=== PATIENT | female | born 1940 | race Caucasian/White ===

== ENCOUNTER → 2016-12-31 | Outpatient (CLI) | payer OTHER, MEDICARE ==
[~2016-12-31] MED LIST: ACEB200C PO; ANAS1TAB19 PO; ANAS1TAB6 PO; CALC500C70 PO; CLTP PO; CRDCD180 PO; FEXO5TAB2 PO; GLCSUNK PO; GLUC1CAP33 PO; HYDC25 PO; HYDR25TA5 PO; IBUP-103 PO; IBUP-1050 PO; MULT-506 PO; VITA400C3 PO
== END | disposition home or self-care (01) ==
LOC: C.RDSM 08:45
PROVIDERS: ATTEND Family Medicine
DX: M54.5 Low back pain (principal); M53.3 Sacrococcygeal disorders, not elsewhere classified; M25.561 Pain in right knee

== ENCOUNTER → 2017-03-31 | Day surgery (SDC) | payer OTHER, MEDICARE ==
[2017-03-17 10:39] VITALS: Ht 167.6 cm; Wt 70.7 kg
[~2017-03-31] VITALS: Ht 167.6 cm; Wt 70.7 kg
[~2017-03-31] MED LIST changes: +500ML BSS 0.3ML EPI 1:1000PF IRRIG ONE; +ACETAMINOPHEN 325 MG TAB PO PRN; +AMVISC PLUS 0.8ML SYRINGE INT OCU ONE; -ANAS1TAB19 PO; +ATROPINE SULFATE 0.1 MG/ML 5ML SYR IV PRN; +BETAXOLOL HCL 0.25% OP SUSP PER DROP CHARGE OPL SCH; +BRIMONIDINE TART 0.2% OP SOLN PER DROP CHARGE ONE; +BSS FLUSH ONE; -CLTP PO; +ENDOCOAT 0.85ML SYRINGE INT OCU ONE; +EpINEphrine INJ 1MG/ML AMP 1 MG/ML AMP ONE; -GLCSUNK PO; -HYDC25 PO; -IBUP-1050 PO; +LACTATED RINGER'S 1000ML 500 ML IV SCH; +LIDOCAINE 4% OP SOLN DROP CHARGE ONE; +LIDOCAINE 4% OP SOLN DROP CHARGE OPL SCH; +LIDOCAINE HCL 1% MPF 2 ML VIAL ONE; +MIDAZOLAM HCL 1 MG/ML 2ML VIAL ONE; +MIX: 4ML BSS 1ML EPI 1:1000 PF INSTIL ONE; +MOXIFLOXACIN OPH SOLN PER DROP CHARGE ONE; +OCUCOAT 1 ML SOLN IO ONE; +POVIDONE-IODINE OP SOLN 30 ML BTL ONE; +PROPARACAINE 0.5% OP SOLN PER DROP CHARGE OPL SCH; +TOBRAMYCIN/DEXAMETHASONE OPH OINT PER APPLN CHARGE ONE; -VITA400C3 PO
[2017-03-31] MEDS: PHENYLEPHRINE HCL 2.5% OP SOLN PER DROP CHARGE OPL SCH ×2 (08:13→08:19)
[2017-03-31] MEDS: TROPICAMIDE 1% OP SOLN PER DROP CHARGE OPL SCH ×2 (08:14→08:20)
[2017-03-31] MEDS: CYCLOPENTOLATE HCL 1% OP SOLN PER DROP CHARGE OPL SCH ×2 (08:16→08:21)
--- NOTE | 2017-03-31 08:16 | History & Physical Bridge - [place] ---
H&P Re-Evaluation Bridge Note: I have examined the patient, reviewed the History & Physical and in the interval since the performance of the History & Physical I have noted the following changes of clinical significance: No changes noted
[2017-03-31] MEDS: MOXIFLOXACIN OPH SOLN PER DROP CHARGE OPL SCH ×2 (08:17→08:23)
--- NOTE | 2017-03-31 09:22 | Discharge Instructions-SurgCtr ---
Discharge Instructions Date of Service Mar 31, 2017. Visit Reason for Visit: Cataract Left Eye Discharge Discharge Diagnosis / Problem: lens implant left eye Discharge Goals Goal(s): Improve function Activity Recommendations Activity Limitations: resume your previous activity Lifting Limitations: no more than 10 pounds Exercise/Sports Limitations: gradually increase as tolerated May Resume Sexual Activity: when tolerated Shower/Bathe: tomorrow Driving or Machine Use: resume 1 day after discharge Anesthesia . Post Anesthesia Instructions: If you have had General Anesthesia or IV Sedation: * Do not drive today. * Resume driving when surgeon permits. * Do not make important decisions or sign legal documents today. * Call surgeon for: 1. Temperature elevations greater than 101 degrees F. 2. Uncontrollable pain. 3. Excessive bleeding. 4. Persistent nausea and vomiting. 5. Medication intolerance (nausea, vomiting or rash). * For nausea and vomiting use only clear liquids such as: tea, soda, bouillon until nausea subsides, then gradually increase diet as tolerated. * If you have any concerns or questions, call your surgeon's office. If physician is unavailable and it is an emergency, call 911 or go to the nearest emergency room. . Instructions / Follow-Up Instructions / Follow-Up ACTIVITY RECOMMENDATIONS: * Light activities. * Mild irritation and blurred vision are common for the first few days. * You may walk outside, read, watch television. * Redness around the white part of the eye is common. MEDICATIONS: Resume previous medications unless instructed otherwise by your surgeon. Start all eye drops at 1 pm today: * Eye drops (today and tomorrow): Prednisone - one drop in operative eye every 3 hours while awake Ofloxacin - one drop in operative eye every 3 hours while awake SPECIAL CARE INSTRUCTIONS: * Tape plastic shield over eye to sleep at night. Call your doctor at with any concerns or problems. FOLLOW UP VISIT: Follow-up with Dr Bowden at [place] office as scheduled. Diet Recommendations Home Diet: no limitations Procedures Procedures Performed: Left Eye Cataract Phacoemulsification With Intraocular Lens Implant Pending Studies Studies pending at discharge: no Medical Emergencies . Who to Call and When: Medical Emergencies: If at any time you feel your situation is an emergency, please call 911 immediately. . Non-Emergent Contact Non-Emergency issues call your: Equip Tech Call Non-Emergent contact if: your pain is not controlled [phone] . . "Provider Documentation" section prepared by Dylan Bowden. .
--- NOTE | 2017-03-31 09:25 | [facility] Operative Report ---
Operative Report Date of Service Mar 31, 2017. Operative Report 1. PREOPERATIVE DIAGNOSIS: Senile Posterior Subcapsular Cataract, left eye. 2. POSTOPERATIVE DIAGNOSIS: Senile Posterior Subcapsular Cataract, left eye. 3. PROCEDURE: Phacoemulsification of left cataract with posterior chamber lens implant, type Bausch [employer] Lomb, model MI60L, power +21.0 diopters. ANESTHESIA: Local standby. SURGEON: Dr. Bowden. COMPLICATIONS: None. OPERATING TIME: 10 minutes. 4. OPERATION AND FINDINGS: DESCRIPTION OF PROCEDURE: The left pupil was dilated. The anesthetic was administered using a topical technique. The left eye was prepped and draped. A speculum was placed. A clear corneal incision was formed. The chamber was filled with Amvisc Plus and Endocoat. Epinephrine solution was used. A paracentesis was placed. A capsulorrhexis was performed. The nucleus was hydrodissected. The lens was removed with phacoemulsification. Time was 4.00 seconds. The aspiration unit was used to remove the cortex. The capsule was filled with Amvisc Plus. The lens implant was folded and placed into the capsule. The incision was hydrated. The Amvisc was aspirated. The wound was secure. The chamber was deep. The pupil was round. Brimonidine, TobraDex ointment and Vigamox solution were placed. The speculum was removed. The patient was returned to the Recovery Room in stable condition. I attest to the content of the Intraoperative Record and any orders documented therein. Any exceptions are noted below. The scribe's documentation has been prepared in my presence, under my direction and personally reviewed by me in its entirety. I confirm that the note above accurately reflects all work, treatment, procedures, and medical decision making performed by me. I personally scribed for Dylan Bowden M.D. (ALISA) on 03/31/17 at 09:25. Electronically submitted by Kellie MICHELLE).
[2017-03-31 09:26] VITALS: TEMP 36.4
--- NOTE | 2017-03-31 09:31 | Anesthesia Progress Nt - [facility] ---
Anesthesia Post Op Note Date & Time Mar 31, 2017 at 09:31 Vital Signs Pain Intensity: 0 Vital Signs Past 12 Hours Date Time Temp Pulse Resp B/P (MAP) Pulse Ox O2 Delivery O2 Flow Rate FiO2 03/31/17 09:26 36.4 60 14 125/69 (87) 94 Room Air 03/31/17 08:03 36.8 61 18 135/77 (96) 96 Room Air Notes Mental Status: alert / awake / arousable, participated in evaluation Pt Amnestic to Procedure: Yes Nausea / Vomiting: adequately controlled Pain: adequately controlled Airway Patency, RR, SpO2: stable & adequate BP & HR: stable & adequate Hydration State: stable & adequate Anesthetic Complications: no major complications apparent
[2017-03-31 09:55] VITALS: BP 122/76; PULSE 64; O2SAT 98
== END | disposition home or self-care (01) ==
LOC: X.SURG 07:42
PROVIDERS: ATTEND Specialist
DX: H25.042 Posterior subcapsular polar age-related cataract, left eye (principal); I10 Essential (primary) hypertension; Z88.0 Allergy status to penicillin; Z88.2 Allergy status to sulfonamides; Z68.25 Body mass index [BMI] 25.0-25.9, adult; Z85.3 Personal history of malignant neoplasm of breast

== ENCOUNTER → 2017-04-14 | Day surgery (SDC) | payer OTHER, MEDICARE ==
[2017-04-08 10:35] VITALS: Ht 167.6 cm; Wt 70.7 kg
[~2017-04-14] VITALS: Ht 167.6 cm; Wt 70.7 kg
[~2017-04-14] MED LIST changes: -500ML BSS 0.3ML EPI 1:1000PF IRRIG ONE; -AMVISC PLUS 0.8ML SYRINGE INT OCU ONE; -BETAXOLOL HCL 0.25% OP SUSP PER DROP CHARGE OPL SCH; +BETAXOLOL HCL 0.25% OP SUSP PER DROP CHARGE OPR SCH; -BSS FLUSH ONE; -ENDOCOAT 0.85ML SYRINGE INT OCU ONE; +EpHEDrine SULFATE INJ 50 MG/ML AMP IV PRN; -LIDOCAINE 4% OP SOLN DROP CHARGE OPL SCH; +LIDOCAINE 4% OP SOLN DROP CHARGE OPR SCH; -MIX: 4ML BSS 1ML EPI 1:1000 PF INSTIL ONE; -OCUCOAT 1 ML SOLN IO ONE; -PROPARACAINE 0.5% OP SOLN PER DROP CHARGE OPL SCH; +PROPARACAINE 0.5% OP SOLN PER DROP CHARGE OPR SCH
[2017-04-14] MEDS: PHENYLEPHRINE HCL 2.5% OP SOLN PER DROP CHARGE OPR SCH ×2 (07:29→07:33)
[2017-04-14] MEDS: TROPICAMIDE 1% OP SOLN PER DROP CHARGE OPR SCH ×2 (07:30→07:34)
[2017-04-14] MEDS: CYCLOPENTOLATE HCL 1% OP SOLN PER DROP CHARGE OPR SCH ×2 (07:31→07:36)
[2017-04-14] MEDS: MOXIFLOXACIN OPH SOLN PER DROP CHARGE OPR SCH ×2 (07:32→07:38)
--- NOTE | 2017-04-14 08:13 | Discharge Instructions-SurgCtr ---
Discharge Instructions Date of Service Apr 14, 2017. Visit Reason for Visit: Cataract Right Eye Discharge Discharge Diagnosis / Problem: lens implant right eye Discharge Goals Goal(s): Improve function Activity Recommendations Activity Limitations: resume your previous activity Lifting Limitations: no more than 10 pounds Exercise/Sports Limitations: gradually increase as tolerated May Resume Sexual Activity: when tolerated Shower/Bathe: tomorrow Driving or Machine Use: resume 1 day after discharge Anesthesia . Post Anesthesia Instructions: If you have had General Anesthesia or IV Sedation: * Do not drive today. * Resume driving when surgeon permits. * Do not make important decisions or sign legal documents today. * Call surgeon for: 1. Temperature elevations greater than 101 degrees F. 2. Uncontrollable pain. 3. Excessive bleeding. 4. Persistent nausea and vomiting. 5. Medication intolerance (nausea, vomiting or rash). * For nausea and vomiting use only clear liquids such as: tea, soda, bouillon until nausea subsides, then gradually increase diet as tolerated. * If you have any concerns or questions, call your surgeon's office. If physician is unavailable and it is an emergency, call 911 or go to the nearest emergency room. . Instructions / Follow-Up Instructions / Follow-Up ACTIVITY RECOMMENDATIONS: * Light activities. * Mild irritation and blurred vision are common for the first few days. * You may walk outside, read, watch television. * Redness around the white part of the eye is common. MEDICATIONS: Resume previous medications unless instructed otherwise by your surgeon. Start all eye drops at 1 pm today: * Eye drops (today and tomorrow): Prednisone - one drop in operative eye every 3 hours while awake Ofloxacin - one drop in operative eye every 3 hours while awake SPECIAL CARE INSTRUCTIONS: * Tape plastic shield over eye to sleep at night. Call your doctor at with any concerns or problems. FOLLOW UP VISIT: Follow-up with Dr Bowden at [place] office as scheduled. Diet Recommendations Home Diet: no limitations Procedures Procedures Performed: cataract extraction with lens implant Pending Studies Studies pending at discharge: no Medical Emergencies . Who to Call and When: Medical Emergencies: If at any time you feel your situation is an emergency, please call 911 immediately. . Non-Emergent Contact Non-Emergency issues call your: College Admissions Counselor Call Non-Emergent contact if: your pain is not controlled [phone] . . "Provider Documentation" section prepared by Dylan Bowden. .
--- NOTE | 2017-04-14 08:14 | [facility] Operative Report ---
Operative Report Date of Service Apr 14, 2017. Operative Report 1. PREOPERATIVE DIAGNOSIS: Senile nuclear cataract, right eye. 2. POSTOPERATIVE DIAGNOSIS: Senile nuclear cataract, right eye. 3. PROCEDURE: Phacoemulsification of right cataract with posterior chamber lens implant, type Bausch [employer] Lomb, model MI60L, power +19.5 diopters. ANESTHESIA: Local standby. SURGEON: Dr. Bowden. COMPLICATIONS: None. OPERATING TIME: 10 minutes. 4. OPERATION AND FINDINGS: DESCRIPTION OF PROCEDURE: The right pupil was dilated. The anesthetic was administered using a topical technique. The right eye was prepped and draped. A speculum was placed. A clear corneal incision was formed. The chamber was filled with Amvisc Plus and Endocoat. Epinephrine solution was used. A paracentesis was placed. A capsulorrhexis was performed. The nucleus was hydrodissected. The lens was removed with phacoemulsification. Time was 4.07 seconds. The aspiration unit was used to remove the cortex. The capsule was filled with Amvisc Plus. The lens implant was folded and placed into the capsule. The incision was hydrated. The Amvisc was aspirated. The wound was secure. The chamber was deep. The pupil was round. Brimonidine, TobraDex ointment and Vigamox solution were placed. The speculum was removed. The patient was returned to the Recovery Room in stable condition. I attest to the content of the Intraoperative Record and any orders documented therein. Any exceptions are noted below. The scribe's documentation has been prepared in my presence, under my direction and personally reviewed by me in its entirety. I confirm that the note above accurately reflects all work, treatment, procedures, and medical decision making performed by me. I personally scribed for Dylan Bowden M.D. (ALISA) on 04/14/17 at 08:14. Electronically submitted by Kellie Fletcher (ANALILIA).
[2017-04-14 08:16] VITALS: TEMP 36.3
--- NOTE | 2017-04-14 08:25 | Anesthesia Progress Nt - [facility] ---
Anesthesia Post Op Note Date & Time Apr 14, 2017 at 08:25 Vital Signs Pain Intensity: 0 Vital Signs Past 12 Hours Date Time Temp Pulse Resp B/P (MAP) Pulse Ox O2 Delivery O2 Flow Rate FiO2 04/14/17 08:16 36.3 55 16 121/70 (87) 97 Room Air 04/14/17 07:21 36.6 58 18 125/78 (94) 95 Room Air Notes Mental Status: alert / awake / arousable, participated in evaluation Pt Amnestic to Procedure: Yes Nausea / Vomiting: adequately controlled Pain: adequately controlled Airway Patency, RR, SpO2: stable & adequate BP & HR: stable & adequate Hydration State: stable & adequate Anesthetic Complications: no major complications apparent
[2017-04-14 08:40] VITALS: BP 116/64; PULSE 54; O2SAT 98
== END | disposition home or self-care (01) ==
LOC: X.SURG 06:49
PROVIDERS: ATTEND Specialist
DX: H25.11 Age-related nuclear cataract, right eye (principal); I10 Essential (primary) hypertension; M19.90 Unspecified osteoarthritis, unspecified site; Z85.3 Personal history of malignant neoplasm of breast; Z88.2 Allergy status to sulfonamides; Z88.1 Allergy status to other antibiotic agents; Z88.0 Allergy status to penicillin; Z90.89 Acquired absence of other organs

== ENCOUNTER → 2017-08-30 | Outpatient (CLI) | payer OTHER, MEDICARE ==
[~2017-08-30] MED LIST changes: -ACETAMINOPHEN 325 MG TAB PO PRN; -ATROPINE SULFATE 0.1 MG/ML 5ML SYR IV PRN; -BETAXOLOL HCL 0.25% OP SUSP PER DROP CHARGE OPR SCH; -BRIMONIDINE TART 0.2% OP SOLN PER DROP CHARGE ONE; -EpHEDrine SULFATE INJ 50 MG/ML AMP IV PRN; -EpINEphrine INJ 1MG/ML AMP 1 MG/ML AMP ONE; -LACTATED RINGER'S 1000ML 500 ML IV SCH; -LIDOCAINE 4% OP SOLN DROP CHARGE ONE; -LIDOCAINE 4% OP SOLN DROP CHARGE OPR SCH; -LIDOCAINE HCL 1% MPF 2 ML VIAL ONE; -MIDAZOLAM HCL 1 MG/ML 2ML VIAL ONE; -MOXIFLOXACIN OPH SOLN PER DROP CHARGE ONE; -POVIDONE-IODINE OP SOLN 30 ML BTL ONE; -PROPARACAINE 0.5% OP SOLN PER DROP CHARGE OPR SCH; -TOBRAMYCIN/DEXAMETHASONE OPH OINT PER APPLN CHARGE ONE
== END | disposition home or self-care (01) ==
LOC: C.RDSM 08:45
PROVIDERS: ATTEND Physical Medicine & Rehabilitation Sports Medicine
DX: M17.0 Bilateral primary osteoarthritis of knee (principal)

== ENCOUNTER 2017-12-22 15:46 | Emergency (ER) | payer MEDICARE, OTHER ==
[~2017-12-22] VITALS: Ht 170.2 cm; Wt 85.0 kg
[2017-12-22 15:51] VITALS: TEMP 36.7; Ht 170.2 cm; Wt 85.0 kg
[2017-12-22] MEDS ORDERED: ONDANSETRON INJ 2 MG/ML 2 ML VIAL IV STA (16:09)
[2017-12-22] MEDS ORDERED: DILT0.05 PO (16:34)
[2017-12-22 16:38] LABS: BASO % 0.1 %; BASO ABS # 0.03 K/uL (0-0.2); EOS % 1.1 %; EOS ABS # 0.24 K/uL (0-0.5); HEMATOCRIT 39.5 % (37-47); HEMOGLOBIN 14.1 g/dL (12.0-16.0); IG# 0.29 K/uL (0.00-0.02); LYMPH % 10.4 %; LYMPH ABS # 2.17 K/uL (1.2-3.4); MEAN CELL VOLUME 91.4 fL (80-100); MEAN CORPUSCULAR HEMOGLOBIN 32.6 pg (25-34); MEAN CORPUSCULAR HGB CONC 35.7 g/dl (32-36); MONO % 4.6 %; MONO ABS # 0.97 K/uL (0.11-0.59); NEUT % 82.4 %; NEUT ABS # 17.22 K/uL (1.4-6.5); PLATELET COUNT 336 K/uL (130-400); RED CELL DISTRIBUTION WIDTH CV 12.8 % (11.5-14.5); RED CELL DISTRIBUTION WIDTH SD 43.2 fL (36.4-46.3); WHITE BLOOD COUNT 20.92 K/uL (4.8-10.8)
[2017-12-22 16:45] LABS: ISTAT IONIZED CALCIUM 1.26 mmol/l (1.12-1.32); ISTAT POTASSIUM 4.1 mEq/L (3.3-5.0)
[2017-12-22 16:47] LABS: INR 0.9 (0.9-1.1); PTT PATIENT 22.9 SECONDS (21.0-31.0)
[2017-12-22] MEDS: FENTANYL CITRATE INJ 50 MCG/1 ML 2 ML VIAL IV PRN ×2 (16:52→19:56)
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
[2017-12-22 16:56] LABS: ALBUMIN 3.6 gm/dl (3.4-5.0); ALT/SGPT 86 U/L (12-78); AST/SGOT 92 U/L (15-37); BLOOD UREA NITROGEN 32 mg/dl (7-18); CALCIUM 9.6 mg/dl (8.5-10.1); CARBON DIOXIDE 25 mmol/L (21-32); CREATININE 1.08 mg/dl (0.60-1.20); GLUCOSE 120 mg/dl (70-99); LIPASE 401 U/L (73-393); SODIUM 137 mmol/L (136-145)
[2017-12-22 17:01] LABS: ALKALINE PHOSPHATASE 101 U/L (45-117)
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
[2017-12-22] MEDS ORDERED: OPTIRAY 320 IV PRN (17:15)
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
[2017-12-22 19:40] VITALS: BP 131/77; PULSE 82; O2SAT 94
== END 2017-12-22 20:04 | disposition short-term general hospital (02) ==
LOC: EDBD 15:46 → C.EDB 15:50
DX: S32.810A Multiple fractures of pelvis with stable disruption of pelvic ring, initial encounter for closed fracture (principal); S32.10XA Unspecified fracture of sacrum, initial encounter for closed fracture; R31.9 Hematuria, unspecified; S36.039A Unspecified laceration of spleen, initial encounter; S20.219A Contusion of unspecified front wall of thorax, initial encounter; V43.52XA Car driver injured in collision with other type car in traffic accident, initial encounter; Y93.89 Activity, other specified; Y92.414 Local residential or business street as the place of occurrence of the external cause; I10 Essential (primary) hypertension; Z88.0 Allergy status to penicillin; Z88.2 Allergy status to sulfonamides; Z88.8 Allergy status to other drugs, medicaments and biological substances; Z88.1 Allergy status to other antibiotic agents; Z91.048 Other nonmedicinal substance allergy status

== ENCOUNTER 2022-12-25 06:24 | Observation (INO) ==
--- NOTE | 2022-10-02 09:22 | PAT Medication Instructions ---
Medication Instructions Date of Service October 02, 2022 Home Medications Ca 600 mg-D3 20 mcg-mag oxide 50 ca-Up-mweczi-manganese-boron tablet (Calcium 600-D3 Plus (mag-zinc)) 1 tab PO QAM acebutolol 200 mg capsule 200 mg PO QAM hydrochlorothiazide 25 mg tablet 25 mg PO QAM ibuprofen 200 mg tablet (Advil) 400 mg PO QPM PRN Pain multivitamin 1 tab PO QAM potassium chloride 10 mEq tablet,extended release (Klor-Con) 10 meq PO BID simethicone 125 mg capsule (Gas-X Extra Strength) 125 mg PO HS PRN Abdominal Discomfort sodium chloride 0.65 % nasal spray aerosol (Saline Nasal) 1 spray intranasal BID PRN Nasal Congestion glucosamine-chondroitin 250 mg-200 mg tablet (Osteo Bi-Flex) 1 tab PO QAM sennosides 8.6 mg-docusate sodium 50 mg tablet (P-COL RITE) 2 tab PO PM PRN constipation diltiazem HCl 180 mg capsule,extended release 24 hr (Cartia XT) 180 mg PO BID ASK your surgeon for instructions ibuprofen 200 mg tablet (Advil) 400 mg PO QPM PRN Pain STOP taking 2 weeks before surgery glucosamine-chondroitin 250 mg-200 mg tablet (Osteo Bi-Flex) 1 tab PO QAM DO NOT take the morning of surgery Ca 600 mg-D3 20 mcg-mag oxide 50 qt-Uw-btejqy-manganese-boron tablet (Calcium 600-D3 Plus (mag-zinc)) 1 tab PO QAM hydrochlorothiazide 25 mg tablet 25 mg PO QAM multivitamin 1 tab PO QAM potassium chloride 10 mEq tablet,extended release (Klor-Con) 10 meq PO BID Take morning of surgery With a small sip of water, OTHERWISE NOTHING TO EAT OR DRINK AFTER MIDNIGHT: sodium chloride 0.65 % nasal spray aerosol (Saline Nasal) 1 spray intranasal BID PRN Nasal Congestion (if needed) diltiazem HCl 180 mg capsule,extended release 24 hr (Cartia XT) 180 mg PO BID acebutolol 200 mg capsule 200 mg PO QAM Take evening before surgery potassium chloride 10 mEq tablet,extended release (Klor-Con) 10 meq PO BID simethicone 125 mg capsule (Gas-X Extra Strength) 125 mg PO HS PRN Abdominal Discomfort (if needed) sodium chloride 0.65 % nasal spray aerosol (Saline Nasal) 1 spray intranasal BID PRN Nasal Congestion (if needed) sennosides 8.6 mg-docusate sodium 50 mg tablet (P-COL RITE) 2 tab PO PM PRN constipation (if needed) diltiazem HCl 180 mg capsule,extended release 24 hr (Cartia XT) 180 mg PO BID Other Notes If you have any questions please call us at [phone] or [phone] or [phone] or [phone]
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
[~2022-12-25 06:24] MED LIST changes: -ACEB200C PO; +ACETAMINOPHEN 500 MG TAB PO SCH; -ANAS1TAB6 PO; +BUPIVACAINE 0.5 % 5 MG/1 ML PF 10ML VIAL ONE; -CALC500C70 PO; -CRDCD180 PO; +FAMOTIDINE 20 MG TAB PO SCH; -FEXO5TAB2 PO; +GABAPENTIN 300 MG CAP PO SCH; -GLUC1CAP33 PO; -HYDR25TA5 PO; -IBUP-103 PO; +LR 15ML/HR IV SCH; +LR 60ML/HR IV SCH; -MULT-506 PO; +ORTHO JOINT MIX INFIL SCH; +TRANEXAMIC ACID 1,000 MG **IV Intra-op IV SCH; +TRANEXAMIC ACID 1,000 MG **IV Pre-op IV SCH; +ceFAZolin 2000MG 2,000 MG/15 ML SYR IV SCH; +dexAMETHasone 4 MG TAB PO SCH
[2022-12-25] MEDS ORDERED: BUPIVACAINE 0.5 % 5 MG/1 ML PF 10ML VIAL ONE (06:26)
--- NOTE | 2022-12-25 06:35 | History & Physical Bridge Note ---
Date of Service December 25, 2022 History & Physical Bridge Note I have examined the patient, reviewed the History & Physical and in the interval since the performance of the History & Physical I have noted the following changes of clinical significance: no changes noted
[2022-12-25] MEDS ORDERED: fentaNYL citrate 100 MCG/2 ML VIAL ONE (07:13)
[2022-12-25] MEDS ORDERED: MIDAZOLAM HCL 1 MG/ML 2ML VIAL ONE (07:13)
[2022-12-25] MEDS ORDERED: PROPOFOL IV EMULSION 10 MG/ML 20 ML VIAL IV ONE (07:17)
[2022-12-25] MEDS ORDERED: ONDANSETRON INJ 2 MG/ML 2 ML VIAL ONE (07:18)
[2022-12-25] MEDS ORDERED: LIDOCAINE 2% MPF LOCAL 5 ML VIAL INFIL ONE (07:18)
[2022-12-25] MEDS ORDERED: ePHEDrine sulfate 50 MG/ML AMP IV PRN (07:30)
[2022-12-25] MEDS ORDERED: HYDROmorphone INJ 2 MG/ML SYR/VIAL IV PRN (07:30)
[2022-12-25] MEDS ORDERED: Nursing to Pharmacy Communication SCH (07:30)
[2022-12-25] MEDS ORDERED: ATROPINE SULFATE 0.1 MG/ML 10ML SYR IV PRN (07:30)
[2022-12-25] MEDS ORDERED: fentaNYL citrate 100 MCG/2 ML VIAL IV PRN (07:30)
[2022-12-25] MEDS ORDERED: ONDANSETRON INJ 2 MG/ML 2 ML VIAL IV PRN ×2 (07:30→11:36)
[2022-12-25] MEDS ORDERED: ORTHO JOINT ANESTHETIC ONE (07:44)
[2022-12-25] MEDS ORDERED: ePHEDrine sulfate 50 MG/ML AMP ONE (08:49)
[2022-12-25] MEDS ORDERED: SUGAMMADEX SODIUM 200 MG/2 ML VIAL IV ONE (09:01)
--- NOTE | 2022-12-25 09:29 | Operative Report ---
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 A tenodesis was opted. This was a separate and distinct portion of the procedure. Also, hardware from a previous operation in 2004 need to be removed. The incision was extended and the hardware was exposed and removed. This was also a distinct and separate portion of the procedure. For these reasons, a CPT code modifier 59 will be added to this case. Implants used: I used a [employer] Comprehensive reverse total shoulder arthroplasty system with a size 11 press fit micro humeral stem, a +6 offset standard humeral tray and a standard humeral bearing, a 25 mm small augment baseplate with a 6.5 mm central screw and superior and inferior locking screws, and a size 40 mm eccentric glenosphere. Ban arrived at [facility] for the above procedure. She was seen in the preoperative holding area and the operative extremity was identified and signed. She was given a preoperative antibiotic, TXA, and an interscalene nerve block. She was taken back to the operating room, laid on table in supine position, and put under general anesthesia. She was then put into the beachchair position. The shoulder was then prepped and draped in sterile fashion. A timeout was done and the patient and the operative extremity was properly identified. A deltopectoral approach was used. Dissection was taken down through the fascia and the deltoid was retracted laterally and the conjoined tendon was retracted medially. The anterior shoulder was exposed. The biceps groove was opened up and the biceps tendon was examined extensively. The biceps tendon demonstrated enlargement and inflammatory changes consistent with longstanding inflammation in the context of osteoarthritis and cuff arthropathy. The long head of the biceps tendon was then tenodesed to the upper border of the pectoralis major. This was a separate and distinct portion of the procedure. The incision was extended slightly distally. Dissection was taken down to the inferior border the pectoralis major. There was a plate and screw from a previous procedure. Time was spent exposing the screw and a single screw was removed from the plate. This was also a distinct and separate part of the procedure. The subscapularis was then directly released off the lesser tuberosity with a peel technique. The inferior capsule was released and the humeral head was dislocated. A canal finding reamer was sent down the center of the humeral canal. Seque ntial reaming up to a size 11 reamer was done. Off that reamer, a proximal humeral resection guide was placed. The proximal humerus was resected at 135 of inclination and 25 of retroversion. Osteophytes were then removed and the glenoid was exposed. Time was spent doing a complete capsular and labral release. The glenoid guide was then placed in the inferior aspect of the glenoid. A 3.2 mm Steinmann pin was then placed into the glenoid vault at 10 of inclination. The glenoid baseplate was then reamed. The final size 25 mm small augment baseplate was then impacted in the place. A 6.5 mm central screw was then placed followed by superior and inferior locking screws. A 40 mm eccentric glenosphere was then impacted into place. Surrounding soft tissues were then injected with 100 cc an orthopedic pain control cocktail. The proximal humerus was then exposed. Sequential broaching of the humerus up to a size 11 broach was done. Off that broach a +6 offset humeral tray was trialed. The shoulder was then reduced, brought through a full range of motion, and felt to be stable. The shoulder was then dislocated and the broach was removed. The final size 11 micro press-fit humeral stem was then impacted into place. A standard humeral bearing was then snapped onto a +6 offset humeral tray. The humeral tray was then impacted onto the humeral stem. The shoulder was once again reduced, brought through a full range of motion, and felt to be stable. The subscapularis was then tenodesed back to the lesser tuberosity with transosseous FiberWire sutures and side to side sutures with the arm in 45 of external rotation. A dilute betadyne lavage was then done for 3 minutes. The joint was then irrigated with normal saline solution. Hemostasis was obtained. The interval was closed with 2-0 Vicryl suture. The skin was then closed with 2-0 Vicryl and dirk. A Silverlon dressing was placed and the arm was rested in a regular arm sling. She was then extubated and transferred to a hospital bed. She taken to the postanesthesia care unit in stable condition. She tolerated the procedure well. Bg Devries PA-C, was present for the entire procedure. He was critical for patient positioning, prepping, draping, retraction exposure, wound closure and application of sterile dressing. I attest to the content of the Intraoperative Record and any orders documented therein. Any exceptions are noted below.
[2022-12-25] MEDS ORDERED: PROMETHAZINE HCL 6.25 MG in SODIUM CHLORIDE 0.9% 50 ML IV PRN (10:46)
[2022-12-25] MEDS ORDERED: PROMETHAZINE HCL INJ 25 MG/ML 1 ML VIAL ONE (10:48)
[2022-12-25] MEDS ORDERED: SODIUM CHLORIDE 0.9% 50 ML BAG ONE (10:50)
--- NOTE | 2022-12-25 10:53 | XRay Report ---
XR shoulder RT min 2V routine HISTORY: 82 years-old Female Post shoulder surgery right shoulder arthroplasty COMPARISON: Chest radiographs September 18, 2023 TECHNIQUE: 3 views of the right shoulder FINDINGS: Reverse right shoulder total joint arthroplasty with expected postoperative soft tissue swelling and deep tissue air. Overlying skin dirk. Plate and screw fusion hardware of the mid humeral diaphysis with intact hardware. Moderate degeneration of the AC joint. Right axillary surgical clips. IMPRESSION: Right shoulder arthroplasty with expected postoperative changes. ACT 112: Negative or not required by law. The above report was generated using voice recognition software. It may contain grammatical, syntax o r spelling errors. Electronically signed by: Bashir Huddleston M.D. 12/25/2022 10:51 AM
--- NOTE | 2022-12-25 11:07 | Anesthesiology Progress Note ---
Date of Service December 25, 2022 Anesthesia Post Procedure Vital Signs Vital Signs: Temp Pulse Pulse Resp BP Pulse Ox O2 Del Method 12/25/22 10:50 58 L 18 121/64 94 Room Air 12/25/22 10:40 57 L 20 105/65 94 Room Air 12/25/22 10:30 55 L 17 115/62 93 Room Air 12/25/22 10:20 60 19 125/64 93 Room Air 12/25/22 10:10 59 L 18 116/61 97 Oxymask 12/25/22 10:00 58 L 20 122/64 96 Oxymask 12/25/22 09:53 36.1 C L 56 L 16 119/61 96 Oxymask 12/25/22 06:54 36.5 C 73 18 165/94 H 96 Room Air O2 Flow Rate 12/25/22 10:50 12/25/22 10:40 12/25/22 10:30 12/25/22 10:20 12/25/22 10:10 6 12/25/22 10:00 6 12/25/22 09:53 9 12/25/22 06:54 Pain Intensity Right Shoulder: Pain Intensity: 7 Transfer of Care Handoff Completed per policy Notes Mental Status: alert / awake / arousable and participated in evaluation Patient Amnestic to Procedure: Yes Nausea / Vomiting: adequately controlled Pain: adequately controlled Airway Patency, RR, SpO2: stable & adequate BP & HR: stable & adequate Hydration State: stable & adequate Anesthetic Complications: no major complications apparent and Pt Satisfied with anesthetic care
[2022-12-25] MEDS ORDERED: METOCLOPRAMIDE HCL INJ 5 MG/ML 2 ML VIAL IV PRN (11:36)
[2022-12-25] MEDS ORDERED: bisacodyL 10 MG SUPP PR PRN (11:36)
[2022-12-25] MEDS ORDERED: oxyCODONE HCL IR 5 MG TAB (IMMEDIATE RELEASE) PO PRN (11:36)
[2022-12-25] MEDS ORDERED: HYDROmorphone INJ 0.5 MG/0.5 ML SYR IV PRN (11:36)
[2022-12-25] MEDS ORDERED: NALOXONE HCL 0.4 MG/1 ML VIAL/CARP IV PRN (11:36)
[2022-12-25] MEDS ORDERED: MAGNESIUM HYDROXIDE SUSP 30 ML UDC PO PRN (11:36)
[2022-12-25] MEDS ORDERED: SODIUM CHLORIDE 0.65% NA SOLN 45 ML (OCEAN) PRN (11:36)
[2022-12-25] MEDS: SODIUM CHLORIDE 0.9% 1000ML 1,000 ML IV SCH ×2 (12:17→21:31)
[2022-12-25] MEDS: KETOROLAC TROMETHAMINE 15 MG/ML VIAL IV SCH ×3 (12:41→23:33)
[2022-12-25] MEDS: ACETAMINOPHEN 500 MG TAB PO SCH ×2 (14:58→21:31)
[2022-12-25] MEDS: SOLIFENACIN 10 MG SCH (15:44)
[2022-12-25] MEDS: ceFAZolin 2000MG 2,000 MG/15 ML SYR IV SCH ×2 (17:33→23:33)
[2022-12-25] MEDS ORDERED: SENNA 8.6 MG TAB PO SCH (21:00)
[2022-12-25] MEDS: dilTIAZem HCL 180 MG CAPCR PO SCH (21:32)
[2022-12-25] MEDS: DOCUSATE SODIUM 100 MG CAP PO SCH (21:32)
[2022-12-25] MEDS: POTASSIUM CHLORIDE 10 MEQ TABCR PO SCH (21:32)
[2022-12-26] MEDS: SOLIFENACIN 10 MG SCH ×2 (00:17→08:24)
[2022-12-26] MEDS: ACETAMINOPHEN 500 MG TAB PO SCH (05:23)
[2022-12-26] MEDS: KETOROLAC TROMETHAMINE 15 MG/ML VIAL IV SCH ×2 (05:23→11:01)
[2022-12-26] MEDS ORDERED: dexAMETHasone 4 MG TAB PO SCH (08:00)
[2022-12-26] MEDS: DOCUSATE SODIUM 100 MG CAP PO SCH (08:26)
[2022-12-26] MEDS: POTASSIUM CHLORIDE 10 MEQ TABCR PO SCH (08:26)
[2022-12-26] MEDS: dilTIAZem HCL 180 MG CAPCR PO SCH (08:26)
--- NOTE | 2022-12-26 08:26 | Orthopedic Progress Note ---
Date of Service December 26, 2022 Assessment & Plan (1) Status post reverse total replacement of right shoulder: Overall she is doing fairly well. She is not having much pain in the right shoulder. She will be seen by physical therapy today for ambulation and range of motion exercises. She can be discharged home later today. She will follow- up orthopedics in 2 weeks. Yolanda Cevallos was seen and examined at bedside this morning. Overall she is doing janet rly well. She is not having much pain in the right shoulder. She was able to get some sleep last night. She has no complaints.. Review of Systems All systems reviewed & are unremarkable except as noted in HPI & below. Physical Exam On physical examination of the right shoulder, the dressing is clean and dry. She is wearing her sling as instructed. The nerve block is still intact.. Results & Data Results & Data Laboratory Results . Diagnostic Findings Postoperative x-rays of the right shoulder show the prosthesis to be in anatomic alignment without any evidence of fracture, dislocation, or loosening.. PG Care Time/CCT Total # of Minutes Spent Total Time Spent with Patient: Total time spent is greater than 50% in coordination of care (as documented) at patient's floor/unit and/or counseling patient: Coding Level of Care Code 22695 Post Operative Follow-Up Diagnoses Status post reverse total replacement of right shoulder Z96.611
--- NOTE | 2022-12-26 08:27 | Discharge Summary ---
Date of Service December 26, 2022 Admission HPI (Per Admitting) Ban is a pleasant 82-year-old female who had an ORIF of her right humerus in 2004 in [place]. She did well with that. Unfortunate over the years, she has developed more more right shoulder pain. X-rays and clinical examination have been diagnostic for cuff tear arthropathy of the right shoulder. After failing conservative treatment, she has elected to proceed with a right reverse shoulder arthroplasty.. Admission Exam (Per Admitting) On physical examination of the right shoulder, she has about 60 degrees of forward elevation 60 degrees of abduction. She has 4 out of 5 motor strength t hroughout.. Principal Diagnosis Same as "Discharge Diagnosis" noted below under Discharge Instructions. Discharge Exam On physical examination of the right shoulder, the dressing is clean and dry. She is wearing her sling as instructed. The nerve block is still intact.. Discharge Data Procedures Performed Operation Date: 12/25/22 08:10 Actual Procedures p Right Reverse Total Shoulder Arthroplasty(Right) - Bg Lambert DO Ordered Studies 11/10/22 05:00 US - OR guided needle placemen Routine 12/25/22 05:00 US - OR guided needle placemen Routine Hospital Course (1) Status post reverse total replacement of right shoulder: On December 25, 2022 Ban arrived at [facility] and underwent a right reverse shoulder replaced without complication. She had a general anesthetic and a right interscalene nerve block. Postoperatively she was placed in a sling and transferred to the general orthopedic floors. Her hospital course was uneventful. On postop day #1, her vital signs were stable and her pain was well controlled. She was able to participate well with physical therapy doing ambulation and range of motion exercises. She was then discharged home. She will follow-up with orthopedics in 2 weeks. PG Care Time/CCT Total # of Minutes Spent Total Time Spent with Patient: Total time spent is greater than 50% in coordination of care (as documented) at patient's floor/unit and/or counseling patient: Discharge Plan Discharge Items Patient Disposition: Home - Home Health Services Reason For Visit: Right Shoulder Degenerative Joint Disease Discharge Diagnosis: Right reverse shoulder replacement Activity: As commented below Non-emergency contact: Surgeon Call non-emergency contact if: your wound has increased redness and your wound has increased drainage Follow-up/Referrals: Cecelia Walker DO [Primary Care Provider] - Diet: Regular Addtl Attending Provider Instructions: Activity and Therapy Recommendations: * If you are using [facility] then therapy will be provided at your home until they feel you have accomplished all of your goals. * If you are using [facility] then Physical Therapy will be provided until they feel you are ready to start Outpatient Physical Therapy. * If you are not using home therapy then Outpatient Physical Therapy should start about 3-5 days from your day of surgery. Therapy will last about 8-12 weeks * Wear your sling for 3 weeks, unless otherwise instructed. You may remove your sling to shower and to dress, but otherwise, you should be in your sling at all times, including while sleeping * The shoulder replacement is very stable and you can use your hand while in the sling * You were shown a series of exercises in the hospital. Do these exercises daily including the exercises you were shown in physical therapy. Medications: * Narcotic You will likely be sent home from the hospital with a prescription for the narcotic pain medication that worked best throughout your stay. * Other medications may be prescribed for specific circumstances. If you have any questions, please call the office at . * Resume previous home medications unless otherwise instructed Dressing Care: Leave the Silverlon dressing in place for 7 days. After 7 days you may remove the dressing. If the incision is not draining then you may leave the dirk open to air. If there is a little bit of drainage or if the dirk are getting stuck on your clothing then cover the incision with a dry dressing. The dirk will be removed at your 2 week follow-up appointment. Showering: You may shower with the Silverlon dressing in place. Do not let the shower spray hit the dressing directly. Pat the Silverlon dressing dry. If the dressing becomes wet underneath, then simply remove the dressing. Keep the incision dry until you are 7 days out from the day of surgery. After 7 days you may remove the Silverlon dressing and shower with the dirk exposed. Let soapy water run over the dirk and pat them dry. Do not scrub or soak the incision. Things To Watch For: * Drainage from the incision site that occurs more than one week after your surgery. * Increased redness at the incision site. * Fever above 102 degrees Fahrenheit. * Unusual chest pain or shortness of breath. * Call [facility] at with any of the above problems Follow-Up Visit: Follow-up with Dr. Lambert's PA (Bg Devries) 2-3 weeks after your day of surgery. He will remove your dirk and answer any questions. If you have any additional questions or concerns, Dr Lambert is usually in the office at the same time and will be available An appointment was probably scheduled when you signed-up for surgery in the office. If you have any questions call More detailed instructions as well as Frequently Asked Questions were provided in a folder by our office when you signed-up for surgery. Please review these instructions when you get home. If you have any further questions or concerns, please feel free to call the office at [phone] Pending Studies at Discharge: No Stand-Alone Forms: My [facility] [place], Smoking Cessation Medications and DC Order Prescriptions: New oxycodone-acetaminophen 5-325 mg tablet 1 tab PO Q6H PRN (Reason: pain) Qty: 30 0RF Continued sennosides-docusate sodium [P-COL RITE] 8.6-50 mg tablet 2 tab PO PM PRN (Reason: constipation) potassium chloride [Klor-Con 10] 10 mEq tablet extended release 10 meq PO BID hydrochlorothiazide 25 mg tablet 25 mg PO QAM acebutolol 200 mg capsule 200 mg PO QAM multivitamin Tablet 1 tab PO QAM simethicone [Gas-X Extra Strength] 125 mg Capsule 125 mg PO HS PRN (Reason: Abdominal Discomfort) ibuprofen [Advil] 200 mg Tablet 400 mg PO QPM PRN (Reason: Pain) Saline Nasal 0.65 % Aerosol,[place] 1 spray INTRANASAL BID PRN (Reason: Nasal Congestion) Ca-D3-mag [id number] [Calcium 600-D3 Plus (mag-zinc)] 600 mg calcium- 800 unit-50 mg Tablet 1 tab PO QAM glucosamine-chondroitin [Osteo Bi-Flex] 250-200 mg Tablet 1 tab PO QAM diltiazem HCl [Cartia XT] 180 mg Capsule,Extended Release 24hr 180 mg PO BID meloxicam 15 mg Tablet 15 mg PO DAILY solifenacin 10 mg Tablet 10 mg PO DAILY acetaminophen [Tylenol] 325 mg Capsule 650 mg PO QID PRN (Reason: Pain) Admission Data Admit Date/Time: 12/25/22 09:50 Attending Provider: Bg Lambert Admit Provider: Bg Lambert Primary Care Provider: Cecelia Walker
[2022-12-26] MEDS ORDERED: CALCIUM 600MG + VIT D 400 IU TAB PO SCH (09:00)
[2022-12-26] MEDS ORDERED: MULTIVITAMIN TAB PO SCH (09:00)
[2022-12-26] MEDS ORDERED: ACEBUTOLOL HCL 200 MG CAPSULE PO SCH (09:00)
[2022-12-26] MEDS ORDERED: hydroCHLOROthiazide 25 MG TAB PO SCH (09:00)
== END 2022-12-26 11:53 | disposition home or self-care (01) ==
LOC: ASU 06:24 → 3E 06:24

== ENCOUNTER 2024-04-16 17:02 | Inpatient (IN) ==
--- NOTE | 2024-04-16 17:17 | Emergency Department Note ---
Impression & Plan Fall, Face lacerations, Knee laceration, Cellulitis, Closed rib fracture ED Provider Note NAME: RYANN HOROWITZ AGE: 83 SEX: F : 1940 ARRIVES VIA: Ambulance INFORMANT: Patient ED PROVIDER(S): Erlin Lomeli DO CHIEF COMPLAINT: fall HPI: Patient is a 83-year-old female with a past medical history of hypertension and gout who presents the ER following mechanical fall. She was going to [employer] on the deck and tripped and fell. She is not dizzy or lightheaded. She fell forward and hit her head. No loss consciousness. She admits to some mild head pain as well as right knee pain. She was brought in by EMS. She denies any blood thinners. No dysuria, urgency, or frequency. No other exacerbating or remitting factors. Tetanus has been updated since 2019. ADDITIONAL HISTORY OBTAINED: Per HPI Chronic Medical/Social Conditions Affecting Care: Per HPI PAST MEDICAL HISTORY:See Below PAST SURGICAL HISTORY:See Below FAMILY HISTORY:See Below SOCIAL HISTORY:See Below HOME MEDICATIONS:See Below ALLERGIES:See Below VITALS:See Below PHYSICAL EXAMINATION: GENERAL: alert, well appearing, well nourished, no distress, non-toxic HEAD: normal cephalic, laceration over the bridge of the nose and contusion to the left forehead EYE EXAM: normal conjunctiva, PERRL and EOM's grossly intact OROPHARYNX: no exudate, no erythema, lips, buccal mucosa, and tongue normal and mucous membranes are moist NOSE: Laceration over the bridge of the nose NECK: supple, no nuchal rigidity, no adenopathy, non-tender CHEST: stable to compression anteriorly and posteriorly LUNGS: clear to auscultation. Normal chest wall mechanics HEART: no murmurs, S1 normal and S2 normal ABDOMEN: abdomen soft, non-tender, normo-active bowel sounds, no masses, no rebound or guarding. PELVIS: stable to compression anteriorly and posteriorly BACK: Back is symmetrical on inspection and there is no deformity, no midline tenderness, no CVA tenderness. UPPER EXTREMITIES: full active and passive range of motion of all joints without tenderness to palpation LOWER EXTREMITIES: No tenderness on palpation of entire left lower extremity. Abrasion over the left lateral extremity with overlying erythema circumferentially from the ankle up to mid escalante. no tenderness on palpation of right hip proximal or mid femur. Large laceration over the proximal right knee which tracks down to bone. Unable to visualize the joint. No tenderness throughout the tib-fib proximal mid or distal. No tenderness throughout the foot. DP and PT 2 out of 4. Gross station intact. NEURO EXAM: Normal sensorium, cranial nerves II-XII grossly intact, normal speech, no gross weakness of arms, no gross weakness of legs. GCS: 15. MEDICAL DECISION MAKING: Patient is an 83-year-old female who presents ER following mechanical fall. IV was established blood work was obtained. Labs show mild leukocytosis of 11,000. No significant anemia. BMP with mild hyponatremia at 132. Patient notes that she tripped and it was mechanical in nature. CT of the head face and cervical spine was obtained and showed a bilateral nasal bone fracture. Patient had a laceration to the bridge of the nose and over the knee. She had a anterior subluxation of the right knee and this was discussed and Dr. Redd reviewed the images. He was on-call for orthopedics. He notes that this is chronic and she can follow-up as an outpatient with her orthopedist. Patient is having significant mount of pain in the knee following the fall and does have a rib fracture and cellulitis. She was given IV Rocephin for the cellulitis initially. Knee was washed out and sutured back together per the request of Dr. Maher here in the ER. Patient was admitted to the hospitalist for further evaluation management treatment patient can be reevaluated in the morning by orthopedics. Consults/Care Managements Discussions: Per [facility] Triage Nursing notes reviewed. Limited review of prior medical records performed Vital Signs: reviewed and remarkable for no significant abnormalities Differential diagnosis: Differential diagnoses include major intracranial, cervical, spinal, thoracic, abdominal, pelvic and neurologic injury. Fracture, contusion, sprain, strain, laceration, abrasions included as well. ER treatment provided: See below Diagnostics interpreted by me include EKG and cardiac monitoring as listed below: -Cardiac Monitoring: An order was placed for continuous cardiac monitoring. The monitor shows a rate of 80 with sinus rhythm. -ECG: none -Laboratory studies:Interpreted by me as stated above in MDM and shown below. Imaging studies: Xrays: As interpreted by me: X-rays of the chest show no obvious pneumothorax X-ray of the knee per radiology CTs show: CT of the head cervical spine and face described above Procedures: Laceration repair of right knee: Wound measured 12 cm. Lidocaine with epinephrine was infiltrated into the wound margins to provide local anesthesia. The wound was inspected for foreign bodies, tendon, artery and bone or joint involvement and none was found. The wound was irrigated with saline and closed with 3-0 suture(s) using 12 nylon sutures and a clean dressing was applied. The patient tolerated the procedure well. Procedure #2: Laceration repair of nose: Wound measured 2 cm. LET provide local anesthesia. The wound was inspected for foreign bodies, tendon, artery and bone or joint involvement and none was found. The wound was irrigated with saline and closed with 6-0 suture(s) using 4 nylon sutures and a clean dressing was applied. The patient tolerated the procedure well. 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 Rib fracture Nasal bone fracture Decreased range of motion of neck Cervical facet joint syndrome Cervical spondylosis Cervicalgia Hypertension (Chronic) Osteoarthritis of knees, bilateral History of orthopedic surgery Rotator cuff arthropathy of left shoulder Abnormal CT scan of lung Osteoarthritis of left knee Sensorineural hearing loss of both ears Getting hearing aids after surgery Acquired deviated nasal septum Status post reverse total replacement of right shoulder (~12/2022) Gout Medical History Decreased range of motion of neck Cervical facet joint syndrome Cervical spondylosis Cervicalgia Urge incontinence History of bilateral breast cancer History of DVT of lower extremity History of COVID-19 Sensorineural hearing loss of both ears Hypertension Surgical History History of knee surgery History of open reduction and internal fixation (ORIF) procedure History of surgery History of bilateral breast biopsy History of lumpectomy of both breasts History of bilateral cataract extraction History of splenectomy History of fracture of pelvis History of tonsillectomy and adenoidectomy Family History Sister Asthma Hypertension Stroke Mother Cancer Pancreatic cancer Ovarian cancer Brother Heart disease Father Hypertension Other No family history of adverse response to anesthesia No family history of bleeding disorder No pertinent family history Social History Smoking Status: Never smoker Second Hand Exposure: No; Do You Dip or Chew Tobacco: No; Hx Alcohol Use: No Hx Substance Use: No Preferred Language: [place] Citizen Communication Ability: Effective Visual Impairment: No Limitations Family Medicine Physician Required: No Beliefs That Will Affect Care: None marital status: Single Current Living Situation: Alone current occupational status: retired Feels Safe at Home: Yes Assistive Devices: None Allergies Allergies Allergy/AdvReac Type Severity Reaction Status Date / Time doxycycline Allergy Severe facial Verified 04/16/24 18:13 swelling sulfamethoxazole Allergy Severe RASH Verified 04/16/24 18:13 trandolapril Allergy Severe FACIAL Verified 04/16/24 18:13 SWELLING trimethoprim Allergy Severe RASH Verified 04/16/24 18:13 verapamil Allergy Severe FACIAL Verified 04/16/24 18:13 SWELLING Home Meds Home Medications Medication Instructions Recorded Confirmed Ca 600 mg-D3 20 mcg-mag oxide 50 1 tab PO QAM 05/01/19 04/16/24 hr-Vp-luykjm-manganese-boron tablet (Calcium 600-D3 Plus (mag-zinc)) acebutolol 200 mg capsule 200 mg PO QAM 05/01/19 04/16/24 hydrochlorothiazide 25 mg tablet 25 mg PO QAM 05/01/19 04/16/24 multivitamin 1 tab PO QAM 05/01/19 04/16/24 potassium chloride 10 mEq 10 meq PO BID 05/01/19 04/16/24 tablet,extended release (Klor-Con) simethicone 125 mg capsule (Gas-X 125 mg PO HS PRN Abdominal 05/01/19 04/16/24 Extra Strength) Discomfort sodium chloride 0.65 % nasal spray 1 spray intranasal BID PRN Nasal 05/01/19 04/16/24 aerosol (Saline Nasal) Congestion glucosamine-chondroitin 250 mg-200 1 tab PO QAM 11/18/19 04/16/24 mg tablet (Osteo Bi-Flex) sennosides 8.6 mg-docusate sodium 2 tab PO PM PRN constipation 07/03/22 04/16/24 50 mg tablet (P-COL RITE) acetaminophen 325 mg capsule 650 mg PO QID PRN Pain 12/25/22 04/16/24 (Tylenol) tramadol 50 mg tablet 50 mg PO DAILY PRN Pain 06/28/23 04/16/24 diltiazem HCl 180 mg 180 mg PO BID 01/17/24 04/16/24 capsule,extended release 24 hr (Cartia XT) Previous Rx's Medication Instructions Recorded allopurinol 100 mg tablet 200 mg (2 x 100 mg) PO DAILY #180 02/08/24 tabs sulfamethoxazole 400 See Rx Instructions PO .COMPLEX #4 02/11/24 mg-trimethoprim 80 mg tablet tabs (Bactrim) Results & Data (ED) Vital Signs Vital Signs - 24 hr 04/16/24 17:26 04/16/24 17:39 04/16/24 19:12 Temperature 36.4 C L Temperature Source Oral Pulse Rate 82 Pulse Rate [Apical] 72 Pulse Rhythm Regular Respiratory Rate 18 16 Respiratory Effort / Characteristics Non-Labored Respiratory Depth Normal Normal Blood Pressure 170/89 H Blood Pressure [Left Arm] 180/87 H Blood Pressure Mean 116 Blood Pressure Mean [Left Arm] 118 Pulse Oximetry 98 95 Oxygen Delivery Method Room Air Room Air Room Air Sepsis Recent Fever Within 48 Hours No Sepsis New/Unexplained Change in Mental Status No Sepsis Action Taken by Nursing No Action Required 04/16/24 21:18 Temperature Temperature Source Pulse Rate 76 Pulse Rate [Apical] Pulse Rhythm Respiratory Rate Respiratory Effort / Characteristics Respiratory Depth Blood Pressure Blood Pressure [Left Arm] Blood Pressure Mean Blood Pressure Mean [Left Arm] Pulse Oximetry Oxygen Delivery Method Sepsis Recent Fever Within 48 Hours Sepsis New/Unexplained Change in Mental Status Sepsis Action Taken by Nursing Laboratory Data 04/16/24 17:25 04/16/24 17:25 Lab Results 04/16/24 Range/Units 17:25 WBC 11.36 H (4.8-10.8) K/ul RBC 3.84 L (4.20-5.40) M/uL Hgb 12.7 (12.0-16.0) g/dl Hct 35.9 L (37.0-47.0) % MCV 93.5 (80.0-100.0) fL MCH 33.1 (25.0-34.0) pg MCHC 35.4 (32.0-36.0) g/dL RDW Std Deviation 52.7 H (36.4-46.3) fL RDW Coeff of Sonia 15.3 H (11.5-14.5) % Plt Count 560 H (130-400) K/uL MPV 8.3 L (9.4-12.4) fL Immature Gran % (Auto) 0.6 % Neut % (Auto) 63.5 % Lymph % (Auto) 25.2 % [place] % (Auto) 9.7 % Eos % (Auto) 0.6 % Baso % (Auto) 0.4 % Neut # (Auto) 7.22 H (1.40-6.50) K/uL Lymph # (Auto) 2.86 (1.20-3.40) K/uL [place] # (Auto) 1.10 H (0.11-0.59) K/uL Eos # (Auto) 0.07 (0.00-0.50) K/uL Baso # (Auto) 0.04 (0.00-0.20) K/uL Immature Gran # (Auto) 0.07 (0.01-0.20) K/uL Sodium 132 L (136-145) mmol/L Potassium 3.7 (3.5-5.1) mmol/L Chloride 98 (98-107) mmol/L Carbon Dioxide 25 (21-32) mmol/L Anion Gap 9 (3-11) BUN 24 H (6-23) mg/dl Creatinine 0.66 (0.6-1.2) mg/dl Est Cr Clr Drug Dosing 57.7 ml/min Est GFR ( Amer) 96.0 ml/min Est GFR (Non-Af Amer) 82.8 ml/min BUN/Creatinine Ratio 36.4 H (10-20) Glucose 93 (70-99(Fasting)) mg/dl Calcium 10.2 (8.6-10.3) mg/dl Administered Medications Ceftriaxone Sodium (Rocephin) 2,000 mg in 50 mls @ 100 mls/hr IV Q24H ORI Stop: 04/18/24 19:29 Last Infusion: 04/16/24 21:50 Dose: Infused Documented By: Admin: 04/16/24 19:31 Dose: 100 mls/hr Documented By: YADIEL Morphine Sulfate (Morphine Sulfate 2 Mg/Ml Carp) 2 mg IV Q4H PRN PRN Reason: Pain(5+) Stop: 04/30/24 20:39 Last Admin: 04/16/24 21:15 Dose: 2 mg Documented By: YADIEL Discontinued Medications Acetaminophen (Acetaminophen 325 Mg Tab) 650 mg PO ONE STA Stop: 04/16/24 21:10 Last Admin: 04/16/24 21:50 Dose: 650 mg Documented By: YADIEL Fentanyl Citrate (Fentanyl Citrate Pf 100 Mcg/2 Ml Vial) 50 mcg IV NOW STA Stop: 04/16/24 18:20 Last Admin: 04/16/24 18:32 Dose: Not Given Documented By: CHANTAL Cefazolin Sodium 3,000 mg/ (Dextrose) 72.5 mls @ 145 mls/hr IV NOW STA Stop: 04/16/24 19:16 Last Admin: 04/16/24 19:37 Dose: Not Given Documented By: YADIEL Ampicillin Sodium/Sulbactam Sodium 3,000 mg/ Sodium Chloride 100 mls @ 200 mls/hr IV NOW STA Stop: 04/16/24 21:37 Last Admin: 04/16/24 21:50 Dose: 200 mls/hr Documented By: YADIEL Lidocaine (Lidocaine/Epineph/Tetracaine 1 Ea Syr) 1 each EXT NOW STA Stop: 04/16/24 17:13 Last Admin: 04/16/24 18:06 Dose: 1 each Documented By: YADIEL Lidocaine/Epinephrine (Lidocaine 1%/Epinephrine 1:100,000 50 Ml Vial) 20 ml INFIL NOW ONE Stop: 04/16/24 20:58 Last Admin: 04/16/24 21:15 Dose: 20 ml Documented By: YADIEL Morphine Sulfate (Morphine Sulfate 2 Mg/Ml Carp) 2 mg IV NOW STA Stop: 04/16/24 17:18 Last Admin: 04/16/24 18:06 Dose: 2 mg Documented By: YADIEL Morphine Sulfate (Morphine Sulfate 4 Mg/Ml 1 Ml Carp\Vial) 4 mg IV NOW STA Stop: 04/16/24 18:25 Last Admin: 04/16/24 18:36 Dose: 4 mg Documented By: CHANTAL Imaging Data Radiologist's Impression: Cervical Spine CT 04/16/24 17:12 CT OF THE CERVICAL SPINE WITHOUT CONTRAST CLINICAL HISTORY: fall COMPARISON STUDY: Cervical spine CT December 22, 2017. TECHNIQUE: Helical axial images of the cervical spine were obtained without IV contrast. Sagittal and coronal reconstructions were viewed. Automated exposure control was utilized for the study. A dose lowering technique was utilized adhering to the principles of ALARA. FINDINGS: Reversal of the cervical lordosis is similar to prior CT. Vertebral body heights are maintained. No acute cervical spine fracture or subluxation is present. There is no prevertebral edema. Facet joints are intact. Severe multilevel facet arthrosis is noted. Extensive degenerative changes at the C1-C2 articulation are again noted. There is also severe disc space narrowing at multiple levels. IMPRESSION: No acute cervical spine fracture or subluxation. Severe degenerative changes within the cervical spine. ACT 112: Negative or not required by law. Electronically signed by: Cortes Hurtado M.D. 04/16/2024 6:[address] 04/16/24 17:[address] WITHOUT CONTRAST CLINICAL HISTORY: fall COMPARISON STUDY: Head CT September 09, 2022. TECHNIQUE: A maxillofacial CT was performed without IV contrast. Coronal and sagittal reformats were viewed. Automated exposure control was utilized for the study. A dose lowering technique was utilized adhering to the principles of ALARA. FINDINGS: A left forehead contusion is noted. The globes are intact. There is no retrobulbar hematoma. There is a nasal laceration. There are acute nondisplaced bilateral nasal bone fractures. Orbital floors are intact. Alignment of the temporomandibular joints is anatomic. Cervical spine CT will be reported separately. There is no acute skull base fracture. IMPRESSION: 1. Nasal laceration. Acute nondisplaced bilateral nasal bone fractures. 2. Left forehead contusion. 3. Globes intact. No retrobulbar hematoma. No orbital floor fracture. ACT 112: Negative or not required by law. Electronically signed by: Cortes Hurtado M.D. 04/16/2024 6:[address] 04/16/24 17:12 CT OF THE HEAD WITHOUT CONTRAST CLINICAL HISTORY: fall COMPARISON STUDY: Head CT September 09, 2022. MRI of the brain July 25, 2019. TECHNIQUE: Helical axial images of the head were obtained without IV contrast. Automated exposure control was utilized for the study. A dose lowering technique was utilized adhering to the principles of ALARA. FINDINGS: No acute intracranial hemorrhage, midline shift or mass effect is present. White matter hypodensities suggest small vessel disease. The ventricular system is unremarkable. The basal cisterns are patent. No extra- axial collections are present. There are no findings to suggest acute dural sinus thrombosis or acute territorial infarct. A left forehead contusion is present. There is no calvarial fracture. There are acute nondisplaced bilateral nasal bone fractures. IMPRESSION: 1. No acute intracranial findings. 2. Left forehead contusion. No calvarial fracture. 3. Acute nondisplaced bilateral nasal bone fractures better depicted on the facial bone CT which will be reported separately. ACT 112: Negative or not required by law. Electronically signed by: Cortes Hurtado M.D. 04/16/2024 6:12 PM Knee X-Ray 04/16/24 17:12 XR knee RT 3V CLINICAL HISTORY: Right knee pain. COMPARISON: Right knee radiographs September 02, 2020. FINDINGS: 8 mm of lateral subluxation of the proximal right tibia in relation to the femur is unchanged since radiographs of September 02, 2020. No acute fractures are identified. Severe degenerative changes within the right knee are present. Lateral view demonstrates apparent anterior subluxation of the tibia with respect to the femur. There is extensive anterior knee soft tissue swelling. No joint effusion is identified. IMPRESSION: 1. Apparent anterior subluxation of the right tibia with respect to the femur on lateral projection. This may be technical however traumatic subluxation cannot be excluded. 2. No acute fractures identified. No right knee joint effusion. 3. Extensive anterior knee soft tissue swelling. 4. Severe right knee osteoarthritis. ACT 112: Negative or not required by law. Electronically signed by: Cortes Hurtado M.D. 04/16/2024 5:59 PM Ribs w/Chest X-Ray 04/16/24 17:14 XR ribs LT min 2V w CXR1V CLINICAL HISTORY: Left lateral rib pain. COMPARISON: Chest CT November 19, 2022 and chest radiograph March 17, 2023. FINDINGS: There is no pneumothorax or pleural effusion. No airspace opacities are present. Cardiomegaly is unchanged. Widening of the right paratracheal stripe is due to vessels. Right shoulder arthroplasty is partially imaged. No definite acute left rib fractures are identified. Possible acute nondisplaced fracture of the anterior left eighth rib. Left SI joint fusion is incidentally noted. IMPRESSION: No pneumothorax. Possible acute nondisplaced fracture of the anterior left eighth rib. ACT 112: Negative or not required by law. Electronically signed by: Cortes Hurtado M.D. 04/16/2024 5:52 PM Discharge Plan Visit Data Chief Complaint: Fall ED Provider: Erlin Lomeli Discharge Problem: Fall, Face lacerations, Knee laceration, Cellulitis, Closed rib fracture Forms Stand Alone Forms: My [facility] Prescriptions Prescriptions: No Action diltiazem HCl [Cartia XT] 180 mg capsule,extended release 24hr 180 mg PO BID allopurinol 100 mg tablet 200 mg PO DAILY Qty: 180 2RF sennosides-docusate sodium [P-COL RITE] 8.6-50 mg tablet 2 tab PO PM PRN (Reason: constipation) Rx Instructions: Unable to verify OTC meds at this date/time. tramadol 50 mg tablet 50 mg PO DAILY PRN (Reason: Pain) sulfamethoxazole-trimethoprim [Bactrim] 400-80 mg tablet See Rx Instructions PO .COMPLEX Qty: 4 0RF Rx Instructions: Unable to verify OTC meds at this date/time. Unsure if pt was able to take to allergy clicnic. do not take, bring to allergy clinic for testing potassium chloride [Klor-Con 10] 10 mEq tablet extended release 10 meq PO BID hydrochlorothiazide 25 mg tablet 25 mg PO QAM acebutolol 200 mg capsule 200 mg PO QAM multivitamin Tablet 1 tab PO QAM Rx Instructions: Unable to verify OTC meds at this date/time. simethicone [Gas-X Extra Strength] 125 mg Capsule 125 mg PO HS PRN (Reason: Abdominal Discomfort) Rx Instructions: Unable to verify OTC meds at this date/time. Saline Nasal 0.65 % Aerosol,[place] 1 spray INTRANASAL BID PRN (Reason: Nasal Congestion) Rx Instructions: Unable to verify OTC meds at this date/time. Ca-D3-mag vf-czcd-vni-jeremiah-bor [Calcium 600-D3 Plus (mag-zinc)] 600 mg calcium- 800 unit-50 mg Tablet 1 tab PO QAM Rx Instructions: Unable to verify OTC meds at this date/time. glucosamine-chondroitin [Osteo Bi-Flex] 250-200 mg Tablet 1 tab PO QAM Rx Instructions: Unable to verify OTC meds at this date/time. acetaminophen [Tylenol] 325 mg Capsule 650 mg PO QID PRN (Reason: Pain) Rx Instructions: Unable to verify OTC meds at this date/time. Referrals Referrals: Cecelia Walker DO [Primary Care Provider] - Discharge Problem: Fall Qualifiers: Encounter type: initial encounter Qualified Code(s): W19.XXXA - Unspecified fall, initial encounter Face lacerations Qualifiers: Encounter type: initial encounter Qualified Code(s): S01.81XA - Laceration without foreign body of other part of head, initial encounter Knee laceration Qualifiers: Encounter type: initial encounter Laterality: unspecified laterality Qualified Code(s): S81.019A - Laceration without foreign body, unspecified knee, initial encounter Cellulitis Qualifiers: Site of cellulitis: unspecified site Qualified Code(s): L03.90 - Cellulitis, unspecified Closed rib fracture Qualifiers: Encounter type: initial encounter Rib fracture type: single rib Laterality: l eft Qualified Code(s): S22.32XA - Fracture of one rib, left side, initial encounter for closed fracture
[2024-04-16 17:42] LABS: Basophils # (auto) 0.04 K/uL (0.00-0.20); Basophils % (auto) 0.4 %; Eosinophils # (auto) 0.07 K/uL (0.00-0.50); Eosinophils % (auto) 0.6 %; Hematocrit (blood only) 35.9 % (37.0-47.0); Hemoglobin 12.7 g/dl (12.0-16.0); Immature Granulocytes # (auto) 0.07 K/uL (0.01-0.20); Immature Granulocytes % (auto) 0.6 %; Lymphocytes # (auto) 2.86 K/uL (1.20-3.40); Lymphocytes % (auto) 25.2 %; Mean Corpuscular Hemoglobin 33.1 pg (25.0-34.0); Mean Corpuscular Hgb Conc 35.4 g/dL (32.0-36.0); Mean Corpuscular Volume 93.5 fL (80.0-100.0); Mean Platelet Volume 8.3 fL (9.4-12.4); Monocytes % (auto) 9.7 %; Neutrophils # (auto) 7.22 K/uL (1.40-6.50); Neutrophils % (auto) 63.5 %; Platelet Count 560 K/uL (130-400); RDW Coefficient of Variation 15.3 % (11.5-14.5); RDW Standard Deviation 52.7 fL (36.4-46.3); Red Blood Count 3.84 M/uL (4.20-5.40); White Blood Count 11.36 K/ul (4.8-10.8)
--- NOTE | 2024-04-16 17:55 | XRay Report ---
XR ribs LT min 2V w CXR1V CLINICAL HISTORY: Left lateral rib pain. COMPARISON: Chest CT November 19, 2022 and chest radiograph March 17, 2023. FINDINGS: There is no pneumothorax or pleural effusion. No airspace opacities are present. Cardiomeg soha is unchanged. Widening of the right paratracheal stripe is due to vessels. Right shoulder arthrop lasty is partially imaged. No definite acute left rib fractures are identified. Possible acute nondis placed fracture of the anterior left eighth rib. Left SI joint fusion is incidentally noted. IMPRESSION: No pneumothorax. Possible acute nondisplaced fracture of the anterior left eighth rib. ACT 112: Negative or not required by law. Electronically signed by: Cortes Hurtado M.D. 04/16/2024 5:52 PM
[2024-04-16 17:56] LABS: BUN Creatinine Ratio 36.4 (10-20); Calcium 10.2 mg/dl (8.6-10.3); Creatinine Clr Calc Pharmacy 57.7 ml/min; Est GFR (Non-African American) 82.8 ml/min; Potassium 3.7 mmol/L (3.5-5.1)
--- NOTE | 2024-04-16 18:01 | XRay Report ---
XR knee RT 3V CLINICAL HISTORY: Right knee pain. COMPARISON: Right knee radiographs September 02, 2020. FINDINGS: 8 mm of lateral subluxation of the proximal right tibia in relation to the femur is unchan ged since radiographs of September 02, 2020. No acute fractures are identified. Severe degenerative ch anges within the right knee are present. Lateral view demonstrates apparent anterior subluxation of t he tibia with respect to the femur. There is extensive anterior knee soft tissue swelling. No joint e ffusion is identified. IMPRESSION: 1. Apparent anterior subluxation of the right tibia with respect to the femur on lateral projection. This may be technical however traumatic subluxation cannot be excluded. 2. No acute fractures identified. No right knee joint effusion. 3. Extensive anterior knee soft tissue swelling. 4. Severe right knee osteoarthritis. ACT 112: Negative or not required by law. Electronically signed by: Cortes Hurtado M.D. 04/16/2024 5:59 PM
[2024-04-16] MEDS: MoRPHine SULFATE 2 MG/ML CARP IV STA (18:06)
[2024-04-16] MEDS: LIDOCAINE/EPINEPH/TETRACAINE 1 EA SYR EXT STA (18:06)
--- NOTE | 2024-04-16 18:14 | CT Scan Report ---
CT OF THE HEAD WITHOUT CONTRAST CLINICAL HISTORY: fall COMPARISON STUDY: Head CT September 09, 2022. MRI of the brain July 25, 2019. TECHNIQUE: Helical axial images of the head were obtained without IV contrast. Automated exposure con trol was utilized for the study. A dose lowering technique was utilized adhering to the principles o f ALARA. FINDINGS: No acute intracranial hemorrhage, midline shift or mass effect is present. White matter hyp odensities suggest small vessel disease. The ventricular system is unremarkable. The basal cisterns a re patent. No extra-axial collections are present. There are no findings to suggest acute dural sinus thrombosis or acute territorial infarct. A left forehead contusion is present. There is no calvarial fracture. There are acute nondisplaced bilateral nasal bone fractures. IMPRESSION: 1. No acute intracranial findings. 2. Left forehead contusion. No calvarial fracture. 3. Acute nondisplaced bilateral nasal bone fractures better depicted on the facial bone CT which will be reported separately. ACT 112: Negative or not required by law. Electronically signed by: Cortes Hurtado M.D. 04/16/2024 6:12 PM
--- NOTE | 2024-04-16 18:16 | CT Scan Report ---
MAXILLOFACIAL CT WITHOUT CONTRAST CLINICAL HISTORY: fall COMPARISON STUDY: Head CT September 09, 2022. TECHNIQUE: A maxillofacial CT was performed without IV contrast. Coronal and sagittal reformats were viewed. Automated exposure control was utilized for the study. A dose lowering technique was utiliz ed adhering to the principles of ALARA. FINDINGS: A left forehead contusion is noted. The globes are intact. There is no retrobulbar hematoma . There is a nasal laceration. There are acute nondisplaced bilateral nasal bone fractures. Orbital f loors are intact. Alignment of the temporomandibular joints is anatomic. Cervical spine CT will be re ported separately. There is no acute skull base fracture. IMPRESSION: 1. Nasal laceration. Acute nondisplaced bilateral nasal bone fractures. 2. Left forehead contusion. 3. Globes intact. No retrobulbar hematoma. No orbital floor fracture. ACT 112: Negative or not required by law. Electronically signed by: Cortes Hurtado M.D. 04/16/2024 6:15 PM
--- NOTE | 2024-04-16 18:19 | CT Scan Report ---
CT OF THE CERVICAL SPINE WITHOUT CONTRAST CLINICAL HISTORY: fall COMPARISON STUDY: Cervical spine CT December 22, 2017. TECHNIQUE: Helical axial images of the cervical spine were obtained without IV contrast. Sagittal a nd coronal reconstructions were viewed. Automated exposure control was utilized for the study. A do se lowering technique was utilized adhering to the principles of ALARA. FINDINGS: Reversal of the cervical lordosis is similar to prior CT. Vertebral body heights are mainta ined. No acute cervical spine fracture or subluxation is present. There is no prevertebral edema. Fac et joints are intact. Severe multilevel facet arthrosis is noted. Extensive degenerative changes at the C1-C2 articulation are again noted. There is also severe disc space narrowing at multiple levels. IMPRESSION: No acute cervical spine fracture or subluxation. Severe degenerative changes within the c ervical spine. ACT 112: Negative or not required by law. Electronically signed by: Cortes Hurtado M.D. 04/16/2024 6:18 PM
[2024-04-16] MEDS: fentaNYL citrate PF 100 MCG/2 ML VIAL IV STA (18:32)
[2024-04-16] MEDS: MoRPHine SULFATE 4 MG/ML 1 ML CARP\\VIAL IV STA (18:36)
[2024-04-16] MEDS: cefTRIAXone SODIUM 2,000 MG/50 ML BAG IV SCH (19:31)
[2024-04-16] MEDS: ceFAZolin 3,000 MG in DEXTROSE 5% 50 ML IV STA (19:37)
--- NOTE | 2024-04-16 19:40 | History & Physical Report ---
Date of Service April 16, 2024 Assessment & Plan (1) Fall: Plan: Admit to med/telemetry on pulse oximetry Currently stable and nontoxic-appearing Patient presented to the ED from her sisters home after sustaining a mechanical fall while trying to turn with her walker on her sisters back deck Patient denies symptoms such as lightheadedness, dizziness, shortness of breath, chest pain, palpitations prior to her fall Patient did hit her forehead and nose on the fall but denies loss of consciousness, she is not on anticoagulation CT of the head/brain and CT of the face without contrast noted her acute nondisplaced bilateral nasal bone fractures, but were negative for acute intracranial findings Patient is alert, oriented, and without focal neurologic defects on exam Patient already had baseline ambulatory dysfunction before her fall, will likely need rehab on discharge Tylenol and morphine for pain PT/OT consult Bilateral SCDs for DVT prophylaxis overnight until we can confirm she is not without ongoing bleeding Fall/aspiration precautions Heart healthy diet with 1800 mL fluid restriction (2) Nasal bone fracture: Plan: CT of the face without contrast notes nondisplaced bilateral nasal bone fractures We will start Unasyn to cover these fractures and cellulitis Pain control with Tylenol and morphine (3) Cellulitis: Plan: Patient noted to have significant left lower extremity cellulitis on exam Patient confirms that her left lower extremity is always more swollen than her right lower extremity at baseline, we will obtain venous Doppler left lower extremity to confirm she is without DVT Patient was given a dose of ceftriaxone in the ED despite being known to be asplenic, we will start every 6 hours Unasyn as the patient recently passed her penicillin allergy testing on 02/11/2024 (4) Rib fracture: Plan: Patient noted to have possible nondisplaced anterior eighth rib fracture Patient is tender in this area however pain on inspiration is not preventing her from taking adequate breaths Continue pain control QID incentive spirometry (5) Hypertension: Plan: Currently stable continue diltiazem, will hold home hydrochlorothiazide until tomorrow to prevent dehydration/JODI Plan The patient was discussed with Dr. Dugan at the time of admission History of Present Illness Chief Complaint: Fall Primary Care Provider: Cecelia Walker DO Ban is an 83-year-old female with a past medical history significant for acquired asplenia, BPV, hypertension who presented to the [facility] ED via EMS after tripping and falling while walking on her back deck in preparation to grill for dinner. She was noted to be hypertensive at 180/87 on arrival but otherwise stable. Labs were significant for a leukocytosis of 11 with neutrophil predominance of 7, sodium of 132. CT of the head and brain without contrast was negative for acute intracranial findings, did note left forehead contusion in the acute nondisplaced bilateral nasal bone fractures. CT of the face without con noted a nasal laceration and acute nondisplaced bilateral nasal bone fractures but was negative for other acute findings. Chest x-ray noted Possible acute nondisplaced fracture of the anterior left eighth rib but was otherwise read as negative for acute findings. CT of the cervical spine were read as negative for acute findings. X-ray of the right knee was read as apparent anterior subluxation of the right tibia with respect to the femur on lateral projection. This may be technical however traumatic subluxation cannot be excluded. No acute fractures identified. No right knee joint effusion. Extensive anterior knee soft tissue swelling and severe right knee osteoarthritis. There were concerns from ED staff the patient has cellulitis of the lower extremity. Prior to admission the patient was given dose of ceftriaxone, 50 mcg fentanyl, and a total of 6 mg IV morphine. Patient was sitting in bed in no acute distress at the time of exam with her sister bedside, history was obtained from both. The patient had been in her normal state of health when she woke this morning. She walks with a walker at baseline due to ambulatory dysfunction from previous injuries. While out on the back deck of her sisters home she was trying to turn when her foot caught causing her to lose her balance and fall forward. She denies any lightheadedness, dizziness, chest pain, shortness of breath, palpitations prior to her fall. She fell forward and did hit her forehead/face but denies loss of consciousness. At the time of my exam her most painful areas are her nose, forehead, neck, and left lower extremity. She denies current back pain, chest pain, shortness of breath, cough, abdominal pain, nausea/vomiting, recent dy suria/hematuria, diarrhea, melena. We discussed CODE STATUS, the patient wishes to be full code and for her sister to make medical decisions for her if she cannot make them herself. 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 Please refer to Dr. Dugan's attestation for any changes to the treatment plan Allergies Allergy/AdvReac Type Severity Reaction Status Date / Time doxycycline Allergy Severe facial Verified 04/16/24 18:13 swelling sulfamethoxazole Allergy Severe RASH Verified 04/16/24 18:13 trandolapril Allergy Severe FACIAL Verified 04/16/24 18:13 SWELLING trimethoprim Allergy Severe RASH Verified 04/16/24 18:13 verapamil Allergy Severe FACIAL Verified 04/16/24 18:13 SWELLING Penicillins Allergy Unknown Unknown Verified 04/16/24 23:34 levofloxacin [From Levaquin] AdvReac Unknown Dizziness Verified 04/16/24 23:34 Home Medications Medication Instructions Recorded Confirmed Type Ca 600 mg-D3 20 mcg-mag oxide 50 1 tab PO QAM 05/01/19 04/16/24 History fu-Bl-wxcedu-manganese-boron tablet (Calcium 600-D3 Plus (mag-zinc)) acebutolol 200 mg capsule 200 mg PO QAM 05/01/19 04/16/24 History hydrochlorothiazide 25 mg tablet 25 mg PO QAM 05/01/19 04/16/24 History multivitamin 1 tab PO QAM 05/01/19 04/16/24 History potassium chloride 10 mEq 10 meq PO BID 05/01/19 04/16/24 History tablet,extended release (Klor-Con) simethicone 125 mg capsule (Gas-X 125 mg PO HS PRN Abdominal 05/01/19 04/16/24 History Extra Strength) Discomfort sodium chloride 0.65 % nasal spray 1 spray intranasal BID PRN Nasal 05/01/19 04/16/24 History aerosol (Saline Nasal) Congestion glucosamine-chondroitin 250 mg-200 1 tab PO QAM 11/18/19 04/16/24 History mg tablet (Osteo Bi-Flex) sennosides 8.6 mg-docusate sodium 2 tab PO PM PRN constipation 07/03/22 04/16/24 History 50 mg tablet (P-COL RITE) acetaminophen 325 mg capsule 650 mg PO QID PRN Pain 12/25/22 04/16/24 History (Tylenol) tramadol 50 mg tablet 50 mg PO DAILY PRN Pain 06/28/23 04/16/24 History diltiazem HCl 180 mg 180 mg PO BID 01/17/24 04/16/24 History capsule,extended release 24 hr (Cartia XT) allopurinol 100 mg tablet 200 mg (2 x 100 mg) PO DAILY #180 02/08/24 04/16/24 Rx tabs sulfamethoxazole 400 See Rx Instructions PO .COMPLEX #4 02/11/24 04/16/24 Rx mg-trimethoprim 80 mg tablet tabs (Bactrim) Past Med/Surg History Problem List (Updated 04/16/24 @ 22:09 by Erlin Lomeli DO) Closed rib fracture (Acute) Cellulitis (Acute) Knee laceration (Acute) Face lacerations (Acute) Fall (Acute) 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 Rib fracture Nasal bone fracture Decreased range of motion of neck Cervical facet joint syndrome Cervical spondylosis Cervicalgia Hypertension (Chronic) Osteoarthritis of knees, bilateral History of orthopedic surgery Rotator cuff arthropathy of left shoulder Abnormal CT scan of lung Osteoarthritis of left knee Sensorineural hearing loss of both ears Getting hearing aids after surgery Acquired deviated nasal septum Status post reverse total replacement of right shoulder (~12/2022) Gout Medical History Decreased range of motion of neck Cervical facet joint syndrome Cervical spondylosis Cervicalgia Urge incontinence History of bilateral breast cancer History of DVT of lower extremity History of COVID-19 Sensorineural hearing loss of both ears Hypertension Surgical History History of knee surgery History of open reduction and internal fixation (ORIF) procedure History of surgery History of bilateral breast biopsy History of lumpectomy of both breasts History of bilateral cataract extraction History of splenectomy History of fracture of pelvis History of tonsillectomy and adenoidectomy Family History Sister Asthma Hypertension Stroke Mother Cancer Pancreatic cancer Ovarian cancer Brother Heart disease Father Hypertension Other No family history of adverse response to anesthesia No family history of bleeding disorder No pertinent family history Social History Smoking Status: Never smoker Second Hand Exposure: No; Do You Dip or Chew Tobacco: No; Hx Alcohol Use: No Hx Substance Use: No Preferred Language: Spanish Communication Ability: Effective Visual Impairment: No 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 Beliefs That Will Affect Care: None marital status: Single Current Living Situation: Alone current occupational status: retired Feels Safe at Home: Yes Assistive Devices: None Physical Exam Physical Exam: Physical Exam: General: In no acute distress, stated age, chronically ill-appearing but non- toxic HEENT: Patient with swelling and bruising of the forehead, laceration noted on the upper nasal bride currently without bleeding, no scleral icterus, pupils around round, symmetrical, and reactive to light, moist mucus membranes, no trauma noted on inspection of the oropharynx, trachea midline, no thyromegaly Chest/Pulm: No respiratory distress, symmetrical chest expansion, clear breath sounds throughout Cardiac: RRR, no murmurs noted Abdomen: Negative for ascites and bruising, normoactive bowel sounds, soft, non-tender to palpation throughout Musculoskeletal: Patient with facial trauma as described above, intact ROM of the BL upper extremities, symmetrical warehouse representative strength in the BL hands, tender to palpation over the left lower anterior ribs, non-tender to palpation of the BL hips, patient with swelling of the BL knees with previous skin tear and bruising of the left knee from old traumatic event >Right knee is currently wrapped due to laceration as the patient is waiting for the ED staff to repair the laceration >No acute trauma noted below the BL knees Extremities: Radial, dorsalis pedis, and posterior tibial pulses are intact and symmetrical, LLE with increased swelling/edema compared to RLE (patient confirms this is her baseline) Skin: Patient with erythema and swelling of the LLE from the ankle to the proximal knee consistent with cellulitis Neuro: Alert and oriented to person, place, month, year, and president, no focal defects, CN II-XII tested and intact, no tremors noted Psych: No acute distress, calm and cooperative during the exam Results & Data Results & Data Vital Signs (Past 12 Hours) Vital Signs Temp Pulse Pulse Resp BP BP Pulse Ox 04/16/24 19:12 72 16 180/87 H 95 04/16/24 17:39 04/16/24 17:26 36.4 C L 82 18 170/89 H 98 O2 Del Method 04/16/24 19:12 Room Air 04/16/24 17:39 Room Air 04/16/24 17:26 Room Air Laboratory Results Abnormal lab results 04/16/24 Range/Units 17:25 WBC 11.36 H (4.8-10.8) K/ul RBC 3.84 L (4.20-5.40) M/uL Hct 35.9 L (37.0-47.0) % RDW Std Deviation 52.7 H (36.4-46.3) fL RDW Coeff of Sonia 15.3 H (11.5-14.5) % Plt Count 560 H (130-400) K/uL MPV 8.3 L (9.4-12.4) fL Neut # (Auto) 7.22 H (1.40-6.50) K/uL Wilbarger # (Auto) 1.10 H (0.11-0.59) K/uL Sodium 132 L (136-145) mmol/L BUN 24 H (6-23) mg/dl BUN/Creatinine Ratio 36.4 H (10-20) Diagnostic Findings Cervical Spine CT 04/16/24 17:12 CT OF THE CERVICAL SPINE WITHOUT CONTRAST CLINICAL HISTORY: fall COMPARISON STUDY: Cervical spine CT December 22, 2017. TECHNIQUE: Helical axial images of the cervical spine were obtained without IV contrast. Sagittal and coronal reconstructions were viewed. Automated exposure control was utilized for the study. A dose lowering technique was utilized adhering to the principles of ALARA. FINDINGS: Reversal of the cervical lordosis is similar to prior CT. Vertebral body heights are maintained. No acute cervical spine fracture or subluxation is present. There is no prevertebral edema. Facet joints are intact. Severe multilevel facet arthrosis is noted. Extensive degenerative changes at the C1-C2 articulation are again noted. There is also severe disc space narrowing at multiple levels. IMPRESSION: No acute cervical spine fracture or subluxation. Severe degenerative changes within the cervical spine. ACT 112: Negative or not required by law. Electronically signed by: Cortes Hurtado M.D. 04/16/2024 6:[address] 04/16/24 17:[address] WITHOUT CONTRAST CLINICAL HISTORY: fall COMPARISON STUDY: Head CT September 09, 2022. TECHNIQUE: A maxillofacial CT was performed without IV contrast. Coronal and sagittal reformats were viewed. Automated exposure control was utilized for the study. A dose lowering technique was utilized adhering to the principles of ALARA. FINDINGS: A left forehead contusion is noted. The globes are intact. There is no retrobulbar hematoma. There is a nasal laceration. There are acute nondisplaced bilateral nasal bone fractures. Orbital floors are intact. Alignment of the temporomandibular joints is anatomic. Cervical spine CT will be reported separately. There is no acute skull base fracture. IMPRESSION: 1. Nasal laceration. Acute nondisplaced bilateral nasal bone fractures. 2. Left forehead contusion. 3. Globes intact. No retrobulbar hematoma. No orbital floor fracture. ACT 112: Negative or not required by law. Electronically signed by: Cortes Hurtado M.D. 04/16/2024 6:[address] 04/16/24 17:12 CT OF THE HEAD WITHOUT CONTRAST CLINICAL HISTORY: fall COMPARISON STUDY: Head CT September 09, 2022. MRI of the brain July 25, 2019. TECHNIQUE: Helical axial images of the head were obtained without IV contrast. Automated exposure control was utilized for the study. A dose lowering technique was utilized adhering to the principles of ALARA. FINDINGS: No acute intracranial hemorrhage, midline shift or mass effect is present. White matter hypodensities suggest small vessel disease. The ventricular system is unremarkable. The basal cisterns are patent. No extra- axial collections are present. There are no findings to suggest acute dural sinus thrombosis or acute territorial infarct. A left forehead contusion is present. There is no calvarial fracture. There are acute nondisplaced bilateral nasal bone fractures. IMPRESSION: 1. No acute intracranial findings. 2. Left forehead contusion. No calvarial fracture. 3. Acute nondisplaced bilateral nasal bone fractures better depicted on the facial bone CT which will be reported separately. ACT 112: Negative or not required by law. Electronically signed by: Cortes Hurtado M.D. 04/16/2024 6:12 PM Knee X-Ray 04/16/24 17:12 XR knee RT 3V CLINICAL HISTORY: Right knee pain. COMPARISON: Right knee radiographs September 02, 2020. FINDINGS: 8 mm of lateral subluxation of the proximal right tibia in relation to the femur is unchanged since radiographs of September 02, 2020. No acute fractures are identified. Severe degenerative changes within the right knee are present. Lateral view demonstrates apparent anterior subluxation of the tibia with respect to the femur. There is extensive anterior knee soft tissue swelling. No joint effusion is identified. IMPRESSION: 1. Apparent anterior subluxation of the right tibia with respect to the femur on lateral projection. This may be technical however traumatic subluxation cannot be excluded. 2. No acute fractures identified. No right knee joint effusion. 3. Extensive anterior knee soft tissue swelling. 4. Severe right knee osteoarthritis. ACT 112: Negative or not required by law. Electronically signed by: Cortes Hurtado M.D. 04/16/2024 5:59 PM Ribs w/Chest X-Ray 04/16/24 17:14 XR ribs LT min 2V w [id number] CLINICAL HISTORY: Left lateral rib pain. COMPARISON: Chest CT November 19, 2022 and chest radiograph March 17, 2023. FINDINGS: There is no pneumothorax or pleural effusion. No airspace opacities are present. Cardiomegaly is unchanged. Widening of the right paratracheal stripe is due to vessels. Right shoulder arthroplasty is partially imaged. No definite acute left rib fractures are identified. Possible acute nondisplaced fracture of the anterior left eighth rib. Left SI joint fusion is incidentally noted. IMPRESSION: No pneumothorax. Possible acute nondisplaced fracture of the anterior left eighth rib. ACT 112: Negative or not required by law. Electronically signed by: Cortes Hurtado M.D. 04/16/2024 5:52 PM ECG Additional Comments: Will obtain at the time of the admission Code Status & VTE Plan Code Status Full code VTE Prophylaxis Plan VTE Prophylaxis will be ordered: Yes Supervising Physician Co-Signing Physician Notes Attending addendum: I have physically seen this patient, have supervised the GEM's activities, and agree with the H&P unless as otherwise noted. Assessment and Plan: Nasal bone fractures- As noted on CT of face and CT head Unasyn 1.5 g IV every 6 hours as noted Pain control with Tylenol for mild pain or fever, and morphine for moderate to severe pain Cellulitis of left lower extremity- Unasyn IV as noted Status post fall/General debilitation- CT of head and brain negative for acute event Consult PT/OT PG Care Time/CCT Total # of Minutes Spent Total Time Spent with Patient: Total time spent is greater than 50% in coordination of care (as documented) at patient's floor/unit and/or counseling patient: Coding [place] [address] INT INP/OBS CARE MIN Patient Type Established Medical Decision Making High Complexity Diagnoses Fall W19.XXXA Encounter type: initial encounter Nasal bone fracture S02.2XXA Cellulitis L03.90 Rib fracture S22.39XA Hypertension I10 (1) Fall Encounter type: initial encounter Qualified Code(s): W19.XXXA - Unspecified fall, initial encounter
[2024-04-16] MEDS ORDERED: NALOXONE HCL 0.4 MG/1 ML VIAL/CARP IV PRN (20:40)
[2024-04-16] MEDS: MoRPHine SULFATE 2 MG/ML CARP IV PRN (21:15)
[2024-04-16] MEDS: LIDOCAINE 1%/EPINEPHRINE 1:100,000 50 ML VIAL INFIL ONE (21:15)
[2024-04-16] MEDS: ACETAMINOPHEN 325 MG TAB PO STA (21:50)
[2024-04-16] MEDS: AMPICILLIN/SULBACTAM SOD 3,000 MG in SODIUM CHLOR 0.9% MINI-B 100 ML IV STA (21:50)
[2024-04-16] MEDS: ONDANSETRON INJ 2 MG/ML 2 ML VIAL IV STA (22:14)
--- NOTE | 2024-04-16 23:58 | Billing Data ---
Date of Service April 16, 2024 Coding Level of Care Code 38329 INT INP/OBS CARE
[2024-04-17] MEDS: dilTIAZem HCL 180 MG CAPCR PO SCH (00:24)
--- NOTE | 2024-04-17 02:44 | Ultrasound Report ---
Exam(s): US VENOUS LEFT LOWER EXTREMITY EXAM: US Duplex Left Lower Extremity Veins CLINICAL HISTORY: Left lower extremity erythema and swelling. TECHNIQUE: Real-time duplex ultrasound scan of the left lower extremity veins integrating B-mode two-dimensional vascular structure, Doppler spectral analysis, color flow Doppler imaging and compression. COMPARISON: No relevant prior studies available. FINDINGS: Deep veins: Unremarkable. No Deep vein thrombosis in the visualized common femoral, femoral, proximal deep femoral or popliteal veins. The veins demonstrate normal color flow, are normally compressible, with normal phasic flow and/or augmentation response. Superficial veins: Unremarkable. No thrombus in the visualized great saphenous vein. Soft tissues: There is an ill-defined 7.5 cm fluid collection which may represent contusion or phlegmon. IMPRESSION: 1. No deep vein thrombosis of the left lower extremity. 2. There is an ill-defined 7.5 cm fluid collection of the subcutaneous tissues of the popliteal fossa which may represent a complicated popliteal cyst, contusion or phlegmon. Electronically signed by: Hortensia Christopher MD 04/17/24 02:43 AM
[2024-04-17] MEDS: AMPICILLIN/SULBACTAM SOD 3,000 MG in SODIUM CHLOR 0.9% MINI-B 100 ML IV SCH (04:28)
[2024-04-17] MEDS: ACETAMINOPHEN 325 MG TAB PO SCH (05:31)
[2024-04-17 06:39] LABS: Basophils # (auto) 0.03 K/uL (0.00-0.20); Basophils % (auto) 0.2 %; Eosinophils # (auto) 0.08 K/uL (0.00-0.50); Eosinophils % (auto) 0.6 %; Hemoglobin 11.9 g/dl (12.0-16.0); Immature Granulocytes # (auto) 0.06 K/uL (0.01-0.20); Immature Granulocytes % (auto) 0.5 %; Lymphocytes # (auto) 2.01 K/uL (1.20-3.40); Lymphocytes % (auto) 15.7 %; Mean Corpuscular Volume 94.2 fL (80.0-100.0); Mean Platelet Volume 8.2 fL (9.4-12.4); Monocytes # (auto) 1.25 K/uL (0.11-0.59); Monocytes % (auto) 9.8 %; Neutrophils # (auto) 9.39 K/uL (1.40-6.50); Neutrophils % (auto) 73.2 %; Platelet Count 514 K/uL (130-400); RDW Coefficient of Variation 15.4 % (11.5-14.5); RDW Standard Deviation 53.7 fL (36.4-46.3); Red Blood Count 3.61 M/uL (4.20-5.40); White Blood Count 12.82 K/ul (4.8-10.8)
[2024-04-17 07:41] LABS: INR 0.9 (0.9-1.1); Prothrombin Time 9.9 Seconds (9.0-12.0)
[2024-04-17] MEDS: traMADol HCL 50 MG TABLET PO PRN ×2 (08:32→21:21)
[2024-04-17] MEDS: ACEBUTOLOL HCL 200 MG CAPSULE PO SCH (08:33)
[2024-04-17] MEDS: ENOXAPARIN INJ 40 MG/0.4 ML SYR SQ SCH (08:33)
[2024-04-17] MEDS: allopurinoL 100 MG TAB PO SCH (08:33)
[2024-04-17 11:07] LABS: Albumin Level 3.4 gm/dl (3.4-5.0); Bilirubin,Total 0.6 mg/dl (0.2-1.0); Calcium 9.7 mg/dl (8.6-10.3); Magnesium 1.7 mg/dl (1.7-2.4); Potassium 3.5 mmol/L (3.5-5.1)
[2024-04-17 11:13] LABS: Albumin Globulin Ratio 1.5 (0.9-2); Creatinine Clr Calc Pharmacy 65.7 ml/min; Est GFR (African American) 100.2 ml/min; Est GFR (Non-African American) 86.4 ml/min; Globulin 2.3 gm/dl (2.5-4.0); Total Protein 5.7 gm/dl (6.0-8.3)
--- NOTE | 2024-04-17 13:53 | Hospitalist Progress Note ---
Date of Service April 17, 2024 Assessment & Plan (1) Fall: Plan: Patient presented to the ED from her sisters home after sustaining a mechanical fall while trying to turn with her walker on her sisters back deck Patient denies symptoms such as lightheadedness, dizziness, shortness of breath, chest pain, palpitations prior to her fall Patient did hit her forehead and nose on the fall but denies loss of consciousness, she is not on anticoagulation CT of the head/brain and CT of the face without contrast noted her acute nondisplaced bilateral nasal bone fractures, but were negative for acute intracranial findings Patient is alert, oriented, and without focal neurologic defects on exam PT/OT consulted, recommending rehab. Case management on board. Tylenol and morphine for pain Bilateral SCDs for DVT prophylaxis overnight until we can confirm she is not without ongoing bleeding Fall/aspiration precautions Heart healthy diet with 1800 mL fluid restriction (2) Nasal bone fracture: Plan: CT of the face without contrast notes nondisplaced bilateral nasal bone fractures We will start Unasyn to cover these fractures and cellulitis Pain control with Tylenol and morphine (3) Cellulitis: Plan: Patient noted to have significant left lower extremity cellulitis on exam Patient confirms that her left lower extremity is always more swollen than her right lower extremity at baseline Venous duplex ultrasound was negative for DVT Clinically improved with less swelling and redness today Continue Unasyn (4) Rib fracture: Plan: Patient noted to have possible nondisplaced anterior eighth rib fracture Patient is tender in this area however pain on inspiration is not preventing her from taking adequate breaths Continue pain control QID incentive spirometry (5) Hypertension: Plan: Currently stable continue diltiazem, will hold home hydrochlorothiazide until tomorrow to prevent dehydration/JODI Admission and Anticipated Discharge Date Admission Date: April 16, 2024 Subjective Patient feels well overall. Denies chest pain or shortness of breath. Says that her left leg swelling and redness is improving. She has mild pain in the left side of her chest at the site of her rib fracture when she takes a deep breath in. The pain is tolerable Review of Systems Review of Systems: All systems reviewed & are unremarkable except as noted in Subjective Physical Exam Physical Exam: General: Awake, conversant Heart: S1, S2/regular rate and rhythm, no murmur rubs or gallops Lungs: Clear to auscultation bilaterally. Normal effort Abdomen: Soft/nontender/nondistended. No hepatosplenomegaly Extremities: No clubbing/cyanosis. No edema Behavior: Appropriate, cooperative Results & Data Results & Data Vital Signs (Past 12 Hours) Vital Signs Temp Pulse Pulse Resp BP Pulse Ox O2 Del Method 04/17/24 11:13 36.5 C 67 16 125/71 95 Room Air 04/17/24 07:29 36.4 C L 70 16 148/79 H 94 Room Air 04/17/24 06:52 69 04/17/24 03:05 36.4 C L 64 18 149/69 H 95 Room Air Laboratory Results Abnormal lab results 04/16/24 04/17/24 Range/Units 17:25 06:05 WBC 11.36 H 12.82 H (4.8-10.8) K/ul RBC 3.84 L 3.61 L (4.20-5.40) M/uL Hgb 11.9 L (12.0-16.0) g/dl Hct 35.9 L 34.0 L (37.0-47.0) % RDW Std Deviation 52.7 H 53.7 H (36.4-46.3) fL RDW Coeff of Sonia 15.3 H 15.4 H (11.5-14.5) % Plt Count 560 H 514 H (130-400) K/uL MPV 8.3 L 8.2 L (9.4-12.4) fL Neut # (Auto) 7.22 H 9.39 H (1.40-6.50) K/uL [place] # (Auto) 1.10 H 1.25 H (0.11-0.59) K/uL Sodium 132 L 133 L (136-145) mmol/L BUN 24 H (6-23) mg/dl Creatinine 0.58 L (0.6-1.2) mg/dl BUN/Creatinine Ratio 36.4 H 31.0 H (10-20) Total Protein 5.7 L (6.0-8.3) gm/dl Globulin 2.3 L (2.5-4.0) gm/dl Diagnostic Findings Cervical Spine CT 04/16/24 17:12 CT OF THE CERVICAL SPINE WITHOUT CONTRAST CLINICAL HISTORY: fall COMPARISON STUDY: Cervical spine CT December 22, 2017. TECHNIQUE: Helical axial images of the cervical spine were obtained without IV contrast. Sagittal and coronal reconstructions were viewed. Automated exposure control was utilized for the study. A dose lowering technique was utilized adhering to the principles of ALARA. FINDINGS: Reversal of the cervical lordosis is similar to prior CT. Vertebral body heights are maintained. No acute cervical spine fracture or subluxation is present. There is no prevertebral edema. Facet joints are intact. Severe multilevel facet arthrosis is noted. Extensive degenerative changes at the C1-C2 articulation are again noted. There is also severe disc space narrowing at multiple levels. IMPRESSION: No acute cervical spine fracture or subluxation. Severe degenerative changes within the cervical spine. ACT 112: Negative or not required by law. Electronically signed by: Cortes Hurtado M.D. 04/16/2024 6:[address] 04/16/24 17:[address] WITHOUT CONTRAST CLINICAL HISTORY: fall COMPARISON STUDY: Head CT September 09, 2022. TECHNIQUE: A maxillofacial CT was performed without IV contrast. Coronal and sagittal reformats were viewed. Automated exposure control was utilized for the study. A dose lowering technique was utilized adhering to the principles of ALARA. FINDINGS: A left forehead contusion is noted. The globes are intact. There is no retrobulbar hematoma. There is a nasal laceration. There are acute nondisplaced bilateral nasal bone fractures. Orbital floors are intact. Alignment of the temporomandibular joints is anatomic. Cervical spine CT will be reported separately. There is no acute skull base fracture. IMPRESSION: 1. Nasal laceration. Acute nondisplaced bilateral nasal bone fractures. 2. Left forehead contusion. 3. Globes intact. No retrobulbar hematoma. No orbital floor fracture. ACT 112: Negative or not required by law. Electronically signed by: Cortes Hurtado M.D. 04/16/2024 6:[address] 04/16/24 17:12 CT OF THE HEAD WITHOUT CONTRAST CLINICAL HISTORY: fall COMPARISON STUDY: Head CT September 09, 2022. MRI of the brain July 25, 2019. TECHNIQUE: Helical axial images of the head were obtained without IV contrast. Automated exposure control was utilized for the study. A dose lowering technique was utilized adhering to the principles of ALARA. FINDINGS: No acute intracranial hemorrhage, midline shift or mass effect is present. White matter hypodensities suggest small vessel disease. The ventricular system is unremarkable. The basal cisterns are patent. No extra- axial collections are present. There are no findings to suggest acute dural sinus thrombosis or acute territorial infarct. A left forehead contusion is present. There is no calvarial fracture. There are acute nondisplaced bilateral nasal bone fractures. IMPRESSION: 1. No acute intracranial findings. 2. Left forehead contusion. No calvarial fracture. 3. Acute nondisplaced bilateral nasal bone fractures better depicted on the facial bone CT which will be reported separately. ACT 112: Negative or not required by law. Electronically signed by: Cortes Hurtado M.D. 04/16/2024 6:12 PM Knee X-Ray 04/16/24 17:12 XR knee RT 3V CLINICAL HISTORY: Right knee pain. COMPARISON: Right knee radiographs September 02, 2020. FINDINGS: 8 mm of lateral subluxation of the proximal right tibia in relation to the femur is unchanged since radiographs of September 02, 2020. No acute fractures are identified. Severe degenerative changes within the right knee are present. Lateral view demonstrates apparent anterior subluxation of the tibia with respect to the femur. There is extensive anterior knee soft tissue swelling. No joint effusion is identified. IMPRESSION: 1. Apparent anterior subluxation of the right tibia with respect to the femur on lateral projection. This may be technical however traumatic subluxation cannot be excluded. 2. No acute fractures identified. No right knee joint effusion. 3. Extensive anterior knee soft tissue swelling. 4. Severe right knee osteoarthritis. ACT 112: Negative or not required by law. Electronically signed by: Cortes Hurtado M.D. 04/16/2024 5:59 PM Ribs w/Chest X-Ray 04/16/24 17:14 XR ribs LT min 2V w [id number] CLINICAL HISTORY: Left lateral rib pain. COMPARISON: Chest CT November 19, 2022 and chest radiograph March 17, 2023. FINDINGS: There is no pneumothorax or pleural effusion. No airspace opacities are present. Cardiomegaly is unchanged. Widening of the right paratracheal stripe is due to vessels. Right shoulder arthroplasty is partially imaged. No definite acute left rib fractures are identified. Possible acute nondisplaced fracture of the anterior left eighth rib. Left SI joint fusion is incidentally noted. IMPRESSION: No pneumothorax. Possible acute nondisplaced fracture of the anterior left eighth rib. ACT 112: Negative or not required by law. Electronically signed by: Cortes Hurtado M.D. 04/16/2024 5:52 PM Venous Doppler Study 04/16/24 20:17 Exam(s): US VENOUS LEFT LOWER EXTREMITY EXAM: US Duplex Left Lower Extremity Veins CLINICAL HISTORY: Left lower extremity erythema and swelling. TECHNIQUE: Real-time duplex ultrasound scan of the left lower extremity veins integrating B-mode two-dimensional vascular structure, Doppler spectral analysis, color flow Doppler imaging and compression. COMPARISON: No relevant prior studies available. FINDINGS: Deep veins: Unremarkable. No Deep vein thrombosis in the visualized common femoral, femoral, proximal deep femoral or popliteal veins. The veins demonstrate normal color flow, are normally compressible, with normal phasic flow and/or augmentation response. Superficial veins: Unremarkable. No thrombus in the visualized great saphenous vein. Soft tissues: There is an ill-defined 7.5 cm fluid collection which may represent contusion or phlegmon. IMPRESSION: 1. No deep vein thrombosis of the left lower extremity. 2. There is an ill-defined 7.5 cm fluid collection of the subcutaneous tissues of the popliteal fossa which may represent a complicated popliteal cyst, contusion or phlegmon. Electronically signed by: Hortensia Christopher MD 04/17/24 02:43 AM PG Care Time/CCT Total # of Minutes Spent Total Time Spent with Patient: Total time spent is greater than 50% in coordination of care (as documented) at patient's floor/unit and/or counseling patient: Coding Level of Care Code 05266 SUB INP/OBS CARE 2/35MIN Diagnoses Fall W19.XXXA Encounter type: initial encounter Nasal bone fracture S02.2XXA Cellulitis L03.90 Rib fracture S22.39XA Hypertension I10 (1) Fall Encounter type: initial encounter Qualified Code(s): W19.XXXA - Unspecified fall, initial encounter
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
[2024-04-17] MEDS: traMADol HCL 50 MG TABLET PO ONE (20:31)
[2024-04-18 06:53] LABS: Basophils # (auto) 0.02 K/uL (0.00-0.20); Basophils % (auto) 0.2 %; Eosinophils # (auto) 0.11 K/uL (0.00-0.50); Hematocrit (blood only) 33.7 % (37.0-47.0); Hemoglobin 11.4 g/dl (12.0-16.0); Immature Granulocytes # (auto) 0.05 K/uL (0.01-0.20); Immature Granulocytes % (auto) 0.4 %; Lymphocytes # (auto) 1.76 K/uL (1.20-3.40); Lymphocytes % (auto) 15.3 %; Mean Corpuscular Hemoglobin 32.2 pg (25.0-34.0); Mean Corpuscular Hgb Conc 33.8 g/dL (32.0-36.0); Mean Corpuscular Volume 95.2 fL (80.0-100.0); Mean Platelet Volume 8.1 fL (9.4-12.4); Monocytes # (auto) 1.43 K/uL (0.11-0.59); Monocytes % (auto) 12.5 %; Neutrophils % (auto) 70.6 %; Platelet Count 475 K/uL (130-400); RDW Coefficient of Variation 15.7 % (11.5-14.5); RDW Standard Deviation 54.2 fL (36.4-46.3); Red Blood Count 3.54 M/uL (4.20-5.40); White Blood Count 11.47 K/ul (4.8-10.8)
[2024-04-18 07:00] LABS: INR 0.9 (0.9-1.1)
[2024-04-18 07:16] LABS: Albumin Level 3.2 gm/dl (3.4-5.0); Bilirubin,Total 0.5 mg/dl (0.2-1.0); Magnesium 1.8 mg/dl (1.7-2.4); Potassium 3.7 mmol/L (3.5-5.1)
[2024-04-18 07:22] LABS: Albumin Globulin Ratio 1.5 (0.9-2); BUN Creatinine Ratio 29.7 (10-20); Creatinine Clr Calc Pharmacy 59.5 ml/min; Est GFR (Non-African American) 83.7 ml/min; Globulin 2.1 gm/dl (2.5-4.0); Total Protein 5.3 gm/dl (6.0-8.3)
[2024-04-18] MEDS: hydroCHLOROthiazide 25 MG TAB PO SCH (09:27)
--- NOTE | 2024-04-18 13:20 | Hospitalist Progress Note ---
Date of Service April 18, 2024 Assessment & Plan (1) Fall: Plan: Patient presented to the ED from her sisters home after sustaining a mechanical fall while trying to turn with her walker on her sisters back deck Patient denies symptoms such as lightheadedness, dizziness, shortness of breath, chest pain, palpitations prior to her fall Patient did hit her forehead and nose on the fall but denies loss of consciousness, she is not on anticoagulation CT of the head/brain and CT of the face without contrast noted her acute nondisplaced bilateral nasal bone fractures, but were negative for acute intracranial findings Patient is alert, oriented, and without focal neurologic defects on exam PT/OT consulted, recommending rehab. Case management on board. Tylenol and morphine for pain Fall/aspiration precautions Heart healthy diet with 1800 mL fluid restriction (2) Nasal bone fracture: Plan: CT of the face without contrast notes nondisplaced bilateral nasal bone fractures We will start Unasyn to cover these fractures and cellulitis. Plan to switch her to Augmentin upon discharge. Pain control with Tylenol and morphine (3) Cellulitis: Plan: Patient noted to have significant left lower extremity cellulitis on exam Patient confirms that her left lower extremity is always more swollen than her right lower extremity at baseline Venous duplex ultrasound was negative for DVT Clinically improved with less swelling and redness today Continue Unasyn. Plan to switch to Augmentin upon discharge (4) Rib fracture: Plan: Patient noted to have possible nondisplaced anterior eighth rib fracture Patient is tender in this area however pain on inspiration is not preventing her from taking adequate breaths Continue pain control QID incentive spirometry (5) Hypertension: Plan: Currently stable continue diltiazem Resume hydrochlorothiazide Plan Likely discharge tomorrow once dizziness improves with IV fluids Admission and Anticipated Discharge Date Admission Date: April 16, 2024 Subjective Patient feels dizzy today. Says that it hurts to take a deep breath in. Review of Systems Review of Systems: All systems reviewed & are unremarkable except as noted in Subjective Physical Exam Physical Exam: General: Awake, conversant. Facial bruises. Laceration over the nasal bridge. Heart: S1, S2/regular rate and rhythm, no murmur rubs or gallops Lungs: Clear to auscultation bilaterally. Normal effort Abdomen: Soft/nontender/nondistended. No hepatosplenomegaly Extremities: No clubbing/cyanosis. Left leg swelling improving Behavior: Appropriate, cooperative Results & Data Results & Data Vital Signs (Past 12 Hours) Vital Signs Temp Pulse Pulse Resp BP Pulse Ox O2 Del Method 04/18/24 12:24 37.3 C 85 16 151/71 H 96 Room Air 04/18/24 08:00 36.6 C 70 16 150/73 H 95 Room Air 04/18/24 07:16 60 04/18/24 03:20 36.6 C 61 16 134/67 93 Room Air Laboratory Results Abnormal lab results 04/18/24 Range/Units 06:32 WBC 11.47 H (4.8-10.8) K/ul RBC 3.54 L (4.20-5.40) M/uL Hgb 11.4 L (12.0-16.0) g/dl Hct 33.7 L (37.0-47.0) % RDW Std Deviation 54.2 H (36.4-46.3) fL RDW Coeff of Sonia 15.7 H (11.5-14.5) % Plt Count 475 H (130-400) K/uL MPV 8.1 L (9.4-12.4) fL Neut # (Auto) 8.10 H (1.40-6.50) K/uL [place] # (Auto) 1.43 H (0.11-0.59) K/uL Sodium 134 L (136-145) mmol/L BUN/Creatinine Ratio 29.7 H (10-20) Total Protein 5.3 L (6.0-8.3) gm/dl Albumin 3.2 L (3.4-5.0) gm/dl Globulin 2.1 L (2.5-4.0) gm/dl PG Care Time/CCT Total # of Minutes Spent Total Time Spent with Patient: Total time spent is greater than 50% in coordination of care (as documented) at patient's floor/unit and/or counseling patient: Coding Level of Care Code 08264 SUB INP/OBS CARE 2/35MIN Diagnoses Fall W19.XXXA Encounter type: initial encounter Nasal bone fracture S02.2XXA Cellulitis L03.90 Rib fracture S22.39XA Hypertension I10 (1) Fall Encounter type: initial encounter Qualified Code(s): W19.XXXA - Unspecified fall, initial encounter
[2024-04-18] MEDS ORDERED: ENOXAPARIN INJ 40 MG/0.4 ML SYR SQ SCH (13:30)
[2024-04-18] MEDS: SODIUM CHLORIDE 0.9% 500 ML IV SCH (15:16)
[2024-04-18] MEDS: IBUPROFEN 200 MG TAB PO STA (18:36)
[2024-04-18] MEDS ORDERED: COUGH DROP (SUGAR FREE) LOZ 24 LOZ/1 BOX BUCCAL PRN (21:16)
[2024-04-19 06:55] LABS: Basophils # (auto) 0.05 K/uL (0.00-0.20); Basophils % (auto) 0.4 %; Eosinophils # (auto) 0.13 K/uL (0.00-0.50); Eosinophils % (auto) 1.1 %; Hematocrit (blood only) 34.1 % (37.0-47.0); Immature Granulocytes # (auto) 0.05 K/uL (0.01-0.20); Immature Granulocytes % (auto) 0.4 %; Mean Corpuscular Hemoglobin 33.2 pg (25.0-34.0); Mean Corpuscular Hgb Conc 35.2 g/dL (32.0-36.0); Mean Corpuscular Volume 94.5 fL (80.0-100.0); Mean Platelet Volume 8.2 fL (9.4-12.4); Monocytes # (auto) 1.13 K/uL (0.11-0.59); Monocytes % (auto) 9.4 %; Neutrophils # (auto) 8.24 K/uL (1.40-6.50); Neutrophils % (auto) 68.7 %; Platelet Count 510 K/uL (130-400); RDW Coefficient of Variation 16.1 % (11.5-14.5); Red Blood Count 3.61 M/uL (4.20-5.40)
[2024-04-19 07:16] LABS: Albumin Globulin Ratio 1.4 (0.9-2); Albumin Level 3.4 gm/dl (3.4-5.0); BUN Creatinine Ratio 26.1 (10-20); Bilirubin,Total 0.4 mg/dl (0.2-1.0); Calcium 9.3 mg/dl (8.6-10.3); Creatinine Clr Calc Pharmacy 55.2 ml/min; Est GFR (African American) 94.6 ml/min; Est GFR (Non-African American) 81.6 ml/min; Globulin 2.5 gm/dl (2.5-4.0); Magnesium 1.8 mg/dl (1.7-2.4); Potassium 3.8 mmol/L (3.5-5.1); Total Protein 5.9 gm/dl (6.0-8.3)
[2024-04-19 07:18] LABS: INR 0.9 (0.9-1.1); Prothrombin Time 9.9 Seconds (9.0-12.0)
--- NOTE | 2024-04-19 11:24 | Discharge Summary ---
Date of Service April 19, 2024 Admission HPI Per Admitting Provider Ban is an 83-year-old female with a past medical history significant for acquired asplenia, BPV, hypertension who presented to the [facility] ED via EMS after tripping and falling while walking on her back deck in preparation to grill for dinner. She was noted to be hypertensive at 180/87 on arrival but otherwise stable. Labs were significant for a leukocytosis of 11 with neutrophil predominance of 7, sodium of 132. CT of the head and brain without contrast was negative for acute intracranial findings, did note left forehead contusion in the acute nondisplaced bilateral nasal bone fractures. CT of the face without con noted a nasal laceration and acute nondisplaced bilateral nasal bone fractures but was negative for other acute findings. Chest x-ray noted Possible acute nondisplaced fracture of the anterior left eighth rib but was otherwise read as negative for acute findings. CT of the cervical spine were read as negative for acute findings. X-ray of the right knee was read as apparent anterior subluxation of the right tibia with respect to the femur on lateral projection. This may be technical however traumatic subluxation cannot be excluded. No acute fractures identified. No right knee joint effusion. Extensive anterior knee soft tissue swelling and severe right knee osteoarthritis. There were concerns from ED staff the patient has cellulitis of the lower extremity. Prior to admission the patient was given dose of ceftriaxone, 50 mcg fentanyl, and a total of 6 mg IV morphine. Patient was sitting in bed in no acute distress at the time of exam with her sister bedside, history was obtained from both. The patient had been in her normal state of health when she woke this morning. She walks with a walker at baseline due to ambulatory dysfunction from previous injuries. While out on the back deck of her sisters home she was trying to turn when her foot caught causing her to lose her balance and fall forward. She denies any lightheadedness, dizziness, chest pain, shortness of breath, palpitations prior to her fall. She fell forward and did hit her forehead/face but denies loss of consciousness. At the time of my exam her most painful areas are her nose, forehead, neck, and left lower extremity. She denies current back pain, chest pain, shortness of breath, cough, abdominal pain, nausea/vomiting, recent dysuria/hematuria, diarrhea, melena. We discussed CODE STATUS, the patient wishes to be full code and for her sister to make medical decisions for her if she cannot make them herself. 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 Please refer to Dr. Dugan's attestation for any changes to the treatment plan Admission Exam Per Admitting Provider General: In no acute distress, stated age, chronically ill-appearing but non- toxic HEENT: Patient with swelling and bruising of the forehead, laceration noted on the upper nasal bride currently without bleeding, no scleral icterus, pupils around round, symmetrical, and reactive to light, moist mucus membranes, no trauma noted on inspection of the oropharynx, trachea midline, no thyromegaly Chest/Pulm: No respiratory distress, symmetrical chest expansion, clear breath sounds throughout Cardiac: RRR, no murmurs noted Abdomen: Negative for ascites and bruising, normoactive bowel sounds, soft, non- tender to palpation throughout Musculoskeletal: Patient with facial trauma as described above, intact ROM of the BL upper extremities, symmetrical nutrition services aide strength in the BL hands, tender to palpation over the left lower anterior ribs, non-tender to palpation of the BL hips, patient with swelling of the BL knees with previous skin tear and bruising of the left knee from old traumatic event >Right knee is currently wrapped due to laceration as the patient is waiting for the ED staff to repair the laceration >No acute trauma noted below the BL knees Extremities: Radial, dorsalis pedis, and posterior tibial pulses are intact and symmetrical, LLE with increased swelling/edema compared to RLE (patient confirms this is her baseline) Skin: Patient with erythema and swelling of the LLE from the ankle to the proximal knee consistent with cellulitis Neuro: Alert and oriented to person, place, month, year, and president, no focal defects, CN II-XII tested and intact, no tremors noted Psych: No acute distress, calm and cooperative during the exam Principal Diagnosis Fall Nasal bone fracture Anterior left eighth rib fracture Right knee abrasion Facial laceration Left lower extremity cellulitis Discharge Exam General: Awake, conversant. Facial bruises. Laceration over the nasal bridge. Heart: S1, S2/regular rate and rhythm, no murmur rubs or gallops Lungs: Clear to auscultation bilaterally. Normal effort Abdomen: Soft/nontender/nondistended. No hepatosplenomegaly Extremities: No clubbing/cyanosis. Left leg swelling improving. Redness has improved Behavior: Appropriate, cooperative Discharge Data Allergies Allergy/AdvReac Type Severity Reaction Status Date / Time doxycycline Allergy Severe facial Verified 04/16/24 18:13 swelling sulfamethoxazole Allergy Severe RASH Verified 04/16/24 18:13 trandolapril Allergy Severe FACIAL Verified 04/16/24 18:13 SWELLING trimethoprim Allergy Severe RASH Verified 04/16/24 18:13 verapamil Allergy Severe FACIAL Verified 04/16/24 18:13 SWELLING Penicillins Allergy Unknown Unknown Verified 04/16/24 23:34 levofloxacin [From Levaquin] AdvReac Unknown Dizziness Verified 04/16/24 23:34 Consultations 04/16/24 19:16 ED Decision to Admit Stat 04/16/24 22:08 Consult Orthopedic Surgery Routine Ordered Studies 04/16/24 17:12 CT cervical spine wo con Stat CT face [CT facial bones wo con] Stat CT head/brain wo con Stat 04/16/24 20:17 US venous doppler LE Routine Hospital Course (1) Fall: Patient presented to the ED from her sisters home after sustaining a mechanical fall while trying to turn with her walker on her sisters back deck Patient denies symptoms such as lightheadedness, dizziness, shortness of breath, chest pain, palpitations prior to her fall Patient did hit her forehead and nose on the fall but denies loss of consciousness, she is not on anticoagulation CT of the head/brain and CT of the face without contrast noted her acute nondisplaced bilateral nasal bone fractures, but were negative for acute intracranial findings Patient is alert, oriented, and without focal neurologic defects on exam PT/OT consulted, recommending rehab. Pain management Fall/aspiration precautions (2) Nasal bone fracture: CT of the face without contrast notes nondisplaced bilateral nasal bone fractures Treated with Unasyn to cover these fractures and the cellulitis. Switching to Augmentin upon discharge Pain control (3) Cellulitis: Patient noted to have significant left lower extremity cellulitis on exam Patient confirms that her left lower extremity is always more swollen than her right lower extremity at baseline Venous duplex ultrasound was negative for DVT Clinically improved with less swelling and redness today Treated with Unasyn. switch to Augmentin upon discharge (4) Rib fracture: Patient noted to have possible nondisplaced anterior eighth rib fracture Patient is tender in this area however pain on inspiration is not preventing her from taking adequate breaths Continue pain control QID incentive spirometry (5) Hypertension: Currently stable continue diltiazem Resume hydrochlorothiazide Plan Discharge today to acute rehab Total Time Total Time Spent Total Time Spent (In Minutes): 35 Discharge Plan Discharge Items Patient Disposition: Transfer Inpatient Rehab Fac Reason For Visit: FALL, CELLULITIS, NASAL BONE FRACTURES Discharge Diagnosis: Fall Nasal bone fracture Anterior left eighth rib fracture Right knee abrasion Facial laceration Left lower extremity cellulitis Activity: Resume your previous activity Non-emergency contact: Primary Care Provider Call non-emergency contact if: you have any medication questions and your symptoms worsen Follow-up/Referrals: Cecelia Walker DO [Primary Care Provider] - Bg Devries PA-C [Physician Corporate Fitness Program Coordinator] - 05/02/24 11:20 am (suture removal) Diet: Heart Healthy Addtl Attending Provider Instructions: Advised to follow-up with PCP in 1 week - Advised that the suture at the nasal laceration will need to be removed on 04/21 or 04/22 by the provider at [facility] Pending Studies at Discharge: No Stand-Alone Forms: My [facility] Skilled Items Patient informed of condition?: Yes DNR: No Discharge Level of Care: Acute rehab Communicable Disease: No Discharge Prognosis: Stable Lines: None Urinary Catheter: No Medications and DC Order Prescriptions: New amoxicillin-pot clavulanate [Augmentin] 500-125 mg tablet 1 tab PO BID 4 Days Qty: 8 0RF Continued diltiazem HCl [Cartia XT] 180 mg capsule,extended release 24hr 180 mg PO BID allopurinol 100 mg tablet 200 mg PO DAILY Qty: 180 2RF sennosides-docusate sodium [P-COL RITE] 8.6-50 mg tablet 2 tab PO PM PRN (Reason: constipation) Rx Instructions: Unable to verify OTC meds at this date/time. tramadol 50 mg tablet 50 mg PO DAILY PRN (Reason: Pain) potassium chloride [Klor-Con 10] 10 mEq tablet extended release 10 meq PO BID hydrochlorothiazide 25 mg tablet 25 mg PO QAM acebutolol 200 mg capsule 200 mg PO QAM multivitamin Tablet 1 tab PO QAM Rx Instructions: Unable to verify OTC meds at this date/time. simethicone [Gas-X Extra Strength] 125 mg Capsule 125 mg PO HS PRN (Reason: Abdominal Discomfort) Rx Instructions: Unable to verify OTC meds at this date/time. Saline Nasal 0.65 % Aerosol,[place] 1 spray INTRANASAL BID PRN (Reason: Nasal Congestion) Rx Instructions: Unable to verify OTC meds at this date/time. Ca-D3-mag [id number] [Calcium 600-D3 Plus (mag-zinc)] 600 mg alex cium- 800 unit-50 mg Tablet 1 tab PO QAM Rx Instructions: Unable to verify OTC meds at this date/time. glucosamine-chondroitin [Osteo Bi-Flex] 250-200 mg Tablet 1 tab PO QAM Rx Instructions: Unable to verify OTC meds at this date/time. acetaminophen [Tylenol] 325 mg Capsule 650 mg PO QID PRN (Reason: Pain) Rx Instructions: Unable to verify OTC meds at this date/time. Discontinued sulfamethoxazole-trimethoprim [Bactrim] 400-80 mg tablet See Rx Instructions PO .COMPLEX Qty: 4 0RF Rx Instructions: Unable to verify OTC meds at this date/time. Unsure if pt was able to take to allergy clicnic. do not take, bring to allergy clinic for testing Discharge Orders: Discharge Order (Routine); Ordered 04/19/24 Ordered By: Silvano Minaya Admission Data Admit Date/Time: 04/16/24 20:39 Attending Provider: Silvano Minaya Admit Provider: Wilber Dugan Primary Care Provider: Cecelia Walker Other Providers: Wilber Dugan; Grabiel Maher; [facility] Coding Level of Care Code 38508 INP/OBS DISCH >30 MIN Diagnoses Fall W19.XXXA Encounter type: initial encounter Nasal bone fracture S02.2XXA Cellulitis L03.90 Rib fracture S22.39XA Hypertension I10
== END 2024-04-19 13:04 | DRG 155 ==
LOC: ED 17:02 → SUATTDRO 20:39 → 2N 20:39